=== PATIENT | female | born 1950 | race Caucasian/White ===

== ENCOUNTER → 2017-09-23 | Outpatient (CLI) | payer OTHER ==
[~2017-09-23] MED LIST: ASPI81TA28 PO; CLX20 PO; LORA-741 PO; OMEP20CA59 PO; ZCR40 PO
--- NOTE | 2017-09-24 07:56 | MAMMOGRAPHY REPORT ---
BILATERAL DIGITAL SCREENING MAMMOGRAM TOMOSYNTHESIS WITH CAD: 09/23/2017 CLINICAL HISTORY: Routine screening. Patient has no complaints. TECHNIQUE: The study was acquired using full field digital technology and interpreted from soft copy. Breast tomosynthesis in addition to standard 2D mammography was performed. Current study was also ev aluated with a Computer Aided Detection (CAD) system. COMPARISON: Comparison is made to exams dated: 04/26/2014 mammogram, 04/25/2013 mammogram, 04/19/2012 m ammogram, 04/16/2011 mammogram, 04/15/2010 mammogram, and 04/13/2009 mammogram - [facility] enter. BREAST COMPOSITION: The tissue of both breasts is almost entirely fatty. FINDINGS: There are a few scattered benign rim calcifications and a stable benign subcentimeter lobul ated mass in the right breast. No new suspicious mass, architectural distortion or cluster of microca lcifications is seen. IMPRESSION: ACR BI-RADS CATEGORY 1: NEGATIVE There is no mammographic evidence of malignancy. A 1 year screening mammogram is recommended.( 019) The patient will receive written notification of the results. Some breast cancers are not detected with mammography. A negative mammographic report should not flora y biopsy if a clinically suggestive mass is present. Giselle Alexander M.D. ay/:09/23/2017 14:00:45 Shutdown Coordinator: RT Veronique(Miguelangel)(M)(BD), [facility] letter sent: Normal 1/2 BI-RADS Code: ACR BI-RADS Category 1: Negative
== END | disposition home or self-care (01) ==
LOC: C.MAMM 12:15
PROVIDERS: ATTEND Student in an Organized Health Care Education/Training Program
DX: Z12.31 Encounter for screening mammogram for malignant neoplasm of breast (principal)

== ENCOUNTER 2022-03-09 15:14 | Inpatient (IN) ==
[2022-03-09] MEDS ORDERED: SODIUM CHLORIDE 0.9% 1000ML 1,000 ML IV ONE ×2 (16:02→17:41)
[2022-03-09] MEDS ORDERED: ONDANSETRON INJ 2 MG/ML 2 ML VIAL IV STA (16:02)
--- NOTE | 2022-03-09 16:06 | Emergency Department Note ---
Impression & Plan Pulmonary embolism and infarction, Chest pain, Acute deep vein thrombosis (DVT) of right lower extremity ED Provider Note NAME: VALENTE LUKE AGE: 71 SEX: F : 1950 ARRIVES VIA: Walk-In INFORMANT: Patient, significant other ED PROVIDER(S): Toni Moore DO CHIEF COMPLAINT: Leg pain HPI: The patient is a 71-year-old female who presented to the emergency department for an evaluation of leg pain. The patient has been experiencing right lower extremity swelling and pain over the course the last 6 to 7 days. She states she is also started having pain in her left chest. She describes it on her left flank and left side. She states she has some shortness of breath nausea and does not any eat or drink. She was seen at the outpatient clinic today and was sent to the emergency department for concerns of venous thromboembolic disease. She has no history of venous thromboembolic disease. She states her pain is mild at this time. She denies having any fever. She has had a slight cough. She notices decreased taste. The patient states that she has been compliant with her outpatient medications otherwise. The patient states the discomfort started behind her right leg. ROS: See above HPI for pertinent positives & negatives. A total of 10 systems reviewed and were otherwise negative. PAST MEDICAL HISTORY: See Below PAST SURGICAL HISTORY: See Below FAMILY HISTORY: See Below SOCIAL HISTORY: See Below HOME MEDICATIONS: See Below ALLERGIES: See Below VITALS: See Below PHYSICAL EXAMINATION: GENERAL: Patient is awake alert in no acute distress patient is resting comfortably and showing no signs of anxiety EYES: The conjunctivae are clear. The pupils are round and reactive. EARS, NOSE, MOUTH AND THROAT: The nose is without any evidence of any deformity. NECK: The neck is nontender and supple. RESPIRATORY: Normal respiratory effort is noted there is no evidence of wheezing rhonchi or rales CARDIOVASCULAR: Regular rate and rhythm noted there no murmurs rubs or gallops normal S1 normal S2. GASTROINTESTINAL: The abdomen is soft. Abdomen is nontender. MUSCULOSKELETAL/EXTREMITIES: There is no evidence of gross deformity full range of motion is noted in the hips and shoulders. SKIN: The skin is warm and dry. Pedal edema was noted in the right lower extremity. There was right calf tenderness. NEUROLOGIC: Patient is awake alert and oriented x3 MEDICAL DECISION MAKING: The patient is a 71-year-old female who presented to the emergency department for an evaluation of chest pain. The patient describes pleuritic left-sided chest pain. She also has right lower extremity swelling. She was seen at the outpatient clinic for lower extremity swelling. She was sent to the emergency department for a possible DVT. The patient was treated with IV fluids and IV pain medication in the emergency department. She was also treated with IV heparin. I discussed the patient's condition with her. She was found to have bilateral pulmonary embolism with right heart strain. I discussed her condition with the on-call [facility]. They have agreed to evaluate the patient in the emergency department for further management and disposition. The patient was feeling much better on subsequent reevaluation. Triage Nursing notes reviewed. Prior medical records reviewed Vital Signs: reviewed and remarkable for tachycardia. Differential diagnosis: DVT, musculoskeletal, infection, joint effusion, trauma, lymphedema, idiopathic, CHF, as well as other pathologies. ER treatment provided: See below Diagnostics interpreted by me: ECG: EKG was obtained in the emergency department. My interpretation is sinus tachycardia 102 bpm. Apical and low lateral ST depressions were noted. This was compared to a tracing from April 04, 2015. No changes were noted. Cardiac Monitoring: An order was placed for continuous cardiac monitoring. The monitor shows a rate of 104 bpm with sinus tachycardia. Laboratory studies: As stated above and show below. Imaging studies: See below. I did independently review the patient's radiographic studies Consultation(s): I discussed this case with Dr. Benedict who is on-call for the [facility]ist group. ED COURSE: Procedures: none Critical Care: I have personally spent greater than 55 minutes of critical care time in the direct management of this patient. This includes bedside care, interpretation of diagnostic studies, and testing, discussion with consultants, patient, and family members, and other required patient management activities. This 55 minutes is in excess of all separately billable procedures. Past Med/Surg History Medical History Anxiety Arthritis Back pain (09/09/13) Back strain Depression Lumbar foraminal stenosis (09/06/13) Surgical History History of back surgery History of hysterectomy History of tonsillectomy History of tubal ligation Social History Smoking Status: Former smoker Preferred Language: Slovak Feels Safe at Home: Yes Allergies Allergies Allergy/AdvReac Type Severity Reaction Status Date / Time Pertussis Vaccines Allergy Unknown RASH/SWELLING Verified 04/04/15 21:59 AT INJECTION SITE Home Meds Home Medications Medication Instructions Recorded Confirmed duloxetine 30 mg capsule,delayed 30 mg PO DAILY 03/09/22 03/09/22 release (Cymbalta) lorazepam 1 mg tablet 1 mg PO HS 03/09/22 03/09/22 omeprazole 20 mg capsule,delayed 20 mg PO DAILY 03/09/22 03/09/22 release oxybutynin chloride 5 mg 5 mg PO DAILY 03/09/22 03/09/22 tablet,extended release 24 hr simvastatin 40 mg tablet 40 mg PO DAILY 03/09/22 03/09/22 Results & Data (ED) Vital Signs Vital Signs - 24 hr 03/09/22 15:19 03/09/22 16:26 03/09/22 19:00 Temperature 36.5 C Temperature Source Temporal Artery Scan Pulse Rate 114 H Pulse Rate [Finger] 104 H 105 H Respiratory Rate 16 24 20 Respiratory Effort / Characteristics Non-Labored Spontaneous Respiratory Depth Normal Blood Pressure 116/79 Blood Pressure [Left Arm] 123/78 106/64 Blood Pressure Mean 91 Blood Pressure Mean [Left Arm] 93 78 Pulse Oximetry 96 94 93 Oxygen Delivery Method Room Air Room Air Room Air Sepsis Recent Fever Within 48 Hours No Sepsis New/Unexplained Change in Mental Status N/A Sepsis Action Taken by Nursing No Action Required Home Medications Current Medication List: was personally reviewed by me Laboratory Data Attestation: I reviewed the patient's lab results. 03/09/22 16:11 03/09/22 16:11 Lab Results 03/09/22 03/09/22 03/09/22 Range/Units 16:11 16:11 16:11 WBC 12.06 H (4.8-10.8) K/ul RBC 5.12 (3.93-5.22) M/uL Hgb 10.8 L (12.0-16.0) g/dl Hct 33.0 L (34.1-44.9) % MCV 64.5 L (80.0-100.0) fL MCH 21.1 L (25.0-34.0) pg MCHC 32.7 (32.0-36.0) g/dL RDW Std Deviation 38.3 (36.4-46.3) fL RDW Coeff of Carole 16.9 H (11.5-14.5) % Plt Count 247 (130-400) K/uL MPV 10.6 (9.4-12.3) fL Immature Gran % (Auto) 0.7 % Neut % (Auto) 74.4 % Lymph % (Auto) 14.9 % Hidalgo % (Auto) 9.0 % Eos % (Auto) 0.7 % Baso % (Auto) 0.3 % Neut # (Auto) 8.96 H (1.4-6.5) K/uL Lymph # (Auto) 1.80 (1.2-3.4) K/uL Hidalgo # (Auto) 1.09 H (0.24-0.82) K/uL Eos # (Auto) 0.08 (0-0.50) K/uL Baso # (Auto) 0.04 (0-0.2) K/uL Immature Gran # (Auto) 0.09 H (0.00-0.02) K/uL Microcytosis Present Ovalocytes 1+ Acanthocytes (Spur) 1+ PT 11.9 (9.0-12.0) Seconds INR 1.1 (0.9-1.1) APTT 23.8 (21.0-31.0) Seconds PTT Ratio 0.9 Sodium 132 L (136-145) mmol/L Potassium 4.2 (3.5-5.1) mmol/L Chloride 101 (98-107) mmol/L Carbon Dioxide 23 (21-32) mmol/L Anion Gap 8 (3-11) BUN 24 H (6-23) mg/dl Creatinine 1.07 (0.6-1.2) mg/dl Est Cr Clr Drug Dosing Not Reportable Est GFR ( Amer) 60.5 ml/min Est GFR (Non-Af Amer) 52.2 ml/min BUN/Creatinine Ratio 22.4 H (10-20) Glucose 115 H (70-99(Fasting)) mg/dl Calcium 9.0 (8.5-10.1) mg/dl Total Bilirubin 0.6 (0.2-1.0) mg/dl AST 31 (13-39) U/L ALT 38 (7-52) U/L Alkaline Phosphatase 138 H (34-104) U/L Troponin I High Sens 20.6 H (0-14) pg/ml Total Protein 7.4 (6.0-8.3) gm/dl Albumin 3.6 (3.4-5.0) gm/dl Globulin 3.8 (2.5-4.0) gm/dl Albumin/Globulin Ratio 0.9 (0.9-2) SARS-CoV-2 (PCR) (Negative) Influenza Type A (PCR) (Neg) Influenza Type B (PCR) (Neg) RSV (RT-PCR) (Neg) 03/09/22 03/09/22 Range/Units 16:11 16:11 WBC (4.8-10.8) K/ul RBC (3.93-5.22) M/uL Hgb (12.0-16.0) g/dl Hct (34.1-44.9) % MCV (80.0-100.0) fL MCH (25.0-34.0) pg MCHC (32.0-36.0) g/dL RDW Std Deviation (36.4-46.3) fL RDW Coeff of Carole (11.5-14.5) % Plt Count (130-400) K/uL MPV (9.4-12.3) fL Immature Gran % (Auto) % Neut % (Auto) % Lymph % (Auto) % Hidalgo % (Auto) % Eos % (Auto) % Baso % (Auto) % Neut # (Auto) (1.4-6.5) K/uL Lymph # (Auto) (1.2-3.4) K/uL Hidalgo # (Auto) (0.24-0.82) K/uL Eos # (Auto) (0-0.50) K/uL Baso # (Auto) (0-0.2) K/uL Immature Gran # (Auto) (0.00-0.02) K/uL Microcytosis Ovalocytes Acanthocytes (Spur) PT (9.0-12.0) Seconds INR (0.9-1.1) APTT (21.0-31.0) Seconds PTT Ratio Sodium (136-145) mmol/L Potassium (3.5-5.1) mmol/L Chloride (98-107) mmol/L Carbon Dioxide (21-32) mmol/L Anion Gap (3-11) BUN (6-23) mg/dl Creatinine (0.6-1.2) mg/dl Est Cr Clr Drug Dosing Est GFR ( Amer) ml/min Est GFR (Non-Af Amer) ml/min BUN/Creatinine Ratio (10-20) Glucose (70-99(Fasting)) mg/dl Calcium (8.5-10.1) mg/dl Total Bilirubin (0.2-1.0) mg/dl AST (13-39) U/L ALT (7-52) U/L Alkaline Phosphatase (34-104) U/L Troponin I High Sens Cancelled (0-14) pg/ml Total Protein (6.0-8.3) gm/dl Albumin (3.4-5.0) gm/dl Globulin (2.5-4.0) gm/dl Albumin/Globulin Ratio (0.9-2) SARS-CoV-2 (PCR) NEGATIVE (Negative) Influenza Type A (PCR) Negative (Neg) Influenza Type B (PCR) Negative (Neg) RSV (RT-PCR) Negative (Neg) Administered Medications Enoxaparin Sodium (Enoxaparin 80 Mg/0.8 Ml Syr) 80 mg SQ Q12 SANDI Stop: 03/09/22 21:01 Last Admin: 03/09/22 19:24 Dose: 80 mg Documented By: GIBRAN Miscellaneous (Patient's Height &/Or Weight Needed) 1 each N/A Q2H [facility] Stop: 04/08/22 18:29 Last Admin: 03/09/22 19:26 Dose: 1 each Documented By: GIBRAN Discontinued Medications Heparin Sodium (Porcine) (Heparin Sod (Porcine) 1000 Unit/Ml) 1 units IV NOW ONE Stop: 03/09/22 17:57 Last Admin: 03/09/22 19:27 Dose: Not Given Documented By: GIBRAN Heparin Sodium/Dextrose (Heparin Iv Adult Wt-Based Standard With Bolus Protocol) 1 each IV NOW STA; Protocol Stop: 03/09/22 17:42 Last Admin: 03/09/22 19:27 Dose: Not Given Documented By: GIBRAN Sodium Chloride (Nss 1000ml) 1,000 mls @ 999 mls/hr IV .Q1H1M ONE Stop: 03/09/22 17:02 Last Infusion: 03/09/22 17:07 Dose: 0 mls/hr Documented By: Admin: 03/09/22 16:12 Dose: 999 mls/hr Documented By: DANIEL Heparin Sodium/Dextrose (Heparin Sodium/Dextrose) 25,000 units in 500 mls @ 0.02 mls/hr IV .Q24H SANDI; Protocol Stop: 04/08/22 17:59 Last Admin: 03/09/22 19:27 Dose: Not Given Documented By: GIBRAN Sodium Chloride (Nss 1000ml) 1,000 mls @ 999 mls/hr IV .Q1H1M ONE Stop: 03/09/22 18:41 Last Admin: 03/09/22 19:23 Dose: 999 mls/hr Documented By: GIBRAN Ioversol (Optiray 320 500ml) 108 ml IV ONCE ONE Stop: 03/09/22 17:40 Last Admin: 03/09/22 17:40 Dose: 108 ml Documented By: LINNETTE Morphine Sulfate (Morphine Sulfate 4 Mg/Ml 1 Ml Carp\Vial) 4 mg IV NOW STA Stop: 03/09/22 16:22 Last Admin: 03/09/22 16:24 Dose: 4 mg Documented By: DANIEL Ondansetron HCl (Ondansetron Inj 2 Mg/Ml 2 Ml Vial) 4 mg IV NOW STA Stop: 03/09/22 16:03 Last Admin: 03/09/22 16:14 Dose: 4 mg Documented By: DANIEL Imaging Data Radiologist's Impression: Venous Doppler Study 03/09/22 15:22 RIGHT LOWER EXTREMITY VENOUS DOPPLER HISTORY: Pulmonary embolus. Right leg swelling. r/o DVT COMPARISON STUDY: None. FINDINGS: Nonocclusive thrombus within the right common femoral vein. There is occlusive thrombus seen within the right superficial femoral and right popliteal veins. The majority of the right calf veins are also thrombosed. IMPRESSION: Extensive DVT within the right lower extremity. ACT 112: Negative or not required by law. Electronically signed by: Royce Harmon M.D. 03/09/2022 7:26 PM Chest CTA 03/09/22 16:21 CHEST CTA for PULMONARY ARTERIES CT DOSE: 429.87 mGy.cm HISTORY: Shortness of breath. TECHNIQUE: Multiaxial CT images of the chest were performed following the intravenous administration of contrast to evaluate the pulmonary arteries. Maximal intensity projection images were also obtained. A dose lowering technique was utilized adhering to the principles of ALARA. COMPARISON STUDY: None. FINDINGS: There is a multinodular left thyroid goiter. This demonstrates mild left substernal extension. No mediastinal or hilar lymphadenopathy. There is a small to moderate hiatus hernia. The visualized liver, spleen, and adrenal glands are unremarkable. Normal caliber esophagus. The heart is normal in size. No pericardial effusion. Normal caliber thoracic aorta with no evidence for dissection. Slight flattening of the interventricular septum which could represent mild right-sided heart strain. Multiple bilateral pulmonary emboli, right greater than left. This involves the majority of the lobar and segmental pulmonary arteries. Thrombus is also seen within the distal right main pulmonary artery. No acute fractures identified. No pneumothorax. The central airways are patent. Mild emphysema. Groundglass and consolidative airspace opacities within the base of the left lower lobe favor a pulmonary infarct. Ground glass densities within the right lower lobe posteriorly favor dependent changes. IMPRESSION: 1. Extensive bilateral pulmonary emboli with borderline right-sided heart strain and a left lower lobe pulmonary infarct. 2. Small left pleural effusion. 3. Small to moderate hiatus hernia. 4. Mild emphysema. ACT 112: Negative or not required by law. Electronically signed by: Royce Harmon M.D. 03/09/2022 6:15 PM Discharge Plan Visit Data Chief Complaint: Leg Injury/Pain Stated Complaint: POSSIBLE BLOOD CLOT, RIGHT LEG PAIN - MD REFERRED ED Provider: Toni Moore Discharge Problem: Pulmonary embolism and infarction, Chest pain, Acute deep vein thrombosis (DVT) of right lower extremity Patient Disposition: Being Evaluated by Hospitalist Forms Stand Alone Forms: My [facility] [employer] Prescriptions Prescriptions: No Action simvastatin 40 mg tablet 40 mg PO DAILY oxybutynin chloride 5 mg tablet extended release 24hr 5 mg PO DAILY omeprazole 20 mg capsule,delayed release(DR/EC) 20 mg PO DAILY lorazepam 1 mg tablet 1 mg PO HS duloxetine [Cymbalta] 30 mg capsule,delayed release(DR/EC) 30 mg PO DAILY Referrals Referrals: Debbi Lewis MD [Outside Practitioners] -
[2022-03-09] MEDS ORDERED: MoRPHine SULFATE 4 MG/ML 1 ML CARP\\VIAL IV STA (16:21)
[2022-03-09 16:30] LABS: Basophils # (auto) 0.04 K/uL (0-0.2); Basophils % (auto) 0.3 %; Eosinophils # (auto) 0.08 K/uL (0-0.50); Eosinophils % (auto) 0.7 %; Hemoglobin 10.8 g/dl (12.0-16.0); Immature Granulocytes # (auto) 0.09 K/uL (0.00-0.02); Immature Granulocytes % (auto) 0.7 %; Lymphocytes % (auto) 14.9 %; Mean Corpuscular Hemoglobin 21.1 pg (25.0-34.0); Mean Corpuscular Hgb Conc 32.7 g/dL (32.0-36.0); Mean Corpuscular Volume 64.5 fL (80.0-100.0); Monocytes # (auto) 1.09 K/uL (0.24-0.82); Neutrophils # (auto) 8.96 K/uL (1.4-6.5); Neutrophils % (auto) 74.4 %; RDW Coefficient of Variation 16.9 % (11.5-14.5); RDW Standard Deviation 38.3 fL (36.4-46.3); Red Blood Count 5.12 M/uL (3.93-5.22); White Blood Count 12.06 K/ul (4.8-10.8)
[2022-03-09 16:43] LABS: INR 1.1 (0.9-1.1); Partial Thromboplastin Ratio 0.9; Partial Thromboplastin Time 23.8 Seconds (21.0-31.0); Prothrombin Time 11.9 Seconds (9.0-12.0)
[2022-03-09 16:57] LABS: Acanthocytes 1+; Mean Platelet Volume 10.6 fL (9.4-12.3); Microcytosis Present; Ovalocytes 1+; Platelet Count 247 K/uL (130-400)
[2022-03-09 16:59] LABS: Alanine Aminotransferase 38 U/L (7-52); Albumin Globulin Ratio 0.9 (0.9-2); Albumin Level 3.6 gm/dl (3.4-5.0); Alkaline Phosphatase 138 U/L (34-104); Anion Gap 8 (3-11); Aspartate Aminotransferase 31 U/L (13-39); BUN Creatinine Ratio 22.4 (10-20); Bilirubin,Total 0.6 mg/dl (0.2-1.0); Blood Urea Nitrogen 24 mg/dl (6-23); Carbon Dioxide 23 mmol/L (21-32); Chloride 101 mmol/L (98-107); Est GFR (African American) 60.5 ml/min; Est GFR (Non-African American) 52.2 ml/min; Globulin 3.8 gm/dl (2.5-4.0); Glucose 115 mg/dl (70-99(Fasting)); Potassium 4.2 mmol/L (3.5-5.1); Sodium 132 mmol/L (136-145); Total Protein 7.4 gm/dl (6.0-8.3); Troponin I High Sensitivity 20.6 pg/ml (0-14)
[2022-03-09 17:10] LABS: Influenza A virus by PCR Negative (Neg); Influenza B virus by PCR Negative (Neg); RSV by PCR Negative (Neg); SARS CoV2 RNA(COVID-19) Ceph NEGATIVE (Negative)
[2022-03-09] MEDS ORDERED: OPTIRAY 320 500ml IV ONE (17:39)
[2022-03-09] MEDS ORDERED: Heparin IV Adult Wt-Based Standard WITH Bolus Protocol IV STA (17:41)
[2022-03-09] MEDS ORDERED: HEPARIN SOD (PORCINE) 1000 UNIT/ML IV ONE (17:56)
[2022-03-09] MEDS ORDERED: HEPARIN SODIUM/DEXTROSE 25,000 UNITS/500 ML BAG IV SCH (18:00)
--- NOTE | 2022-03-09 18:17 | CT Scan Report ---
CHEST CTA for PULMONARY ARTERIES CT DOSE: 429.87 mGy.cm HISTORY: Shortness of breath. TECHNIQUE: Multiaxial CT images of the chest were performed following the intravenous administration of contrast to evaluate the pulmonary arteries. Maximal intensity projection images were also obtaine d. A dose lowering technique was utilized adhering to the principles of ALARA. COMPARISON STUDY: None. FINDINGS: There is a multinodular left thyroid goiter. This demonstrates mild left substernal extensi on. No mediastinal or hilar lymphadenopathy. There is a small to moderate hiatus hernia. The visualiz ed liver, spleen, and adrenal glands are unremarkable. Normal caliber esophagus. The heart is normal in size. No pericardial effusion. Normal caliber thoracic aorta with no evidence for dissection. Slig ht flattening of the interventricular septum which could represent mild right-sided heart strain. Mul tiple bilateral pulmonary emboli, right greater than left. This involves the majority of the lobar an d segmental pulmonary arteries. Thrombus is also seen within the distal right main pulmonary artery. No acute fractures identified. No pneumothorax. The central airways are patent. Mild emphysema. Groun dglass and consolidative airspace opacities within the base of the left lower lobe favor a pulmonary infarct. Ground glass densities within the right lower lobe posteriorly favor dependent changes. IMPRESSION: 1. Extensive bilateral pulmonary emboli with borderline right-sided heart strain and a left lower lob e pulmonary infarct. 2. Small left pleural effusion. 3. Small to moderate hiatus hernia. 4. Mild emphysema. ACT 112: Negative or not required by law. Electronically signed by: Royce Harmon M.D. 03/09/2022 6:15 PM
--- NOTE | 2022-03-09 18:58 | History & Physical Report ---
Date of Service March 09, 2022 Assessment & Plan (1) Pulmonary embolism and infarction: Plan: Submassive PE Right ventricular strain Patient presents with 1 week history of right leg swelling and left-sided chest pain. Hemodynamically stable. In room air EKG shows sinus tachycardia; no ST or T wave changes. High-sensitivity troponin elevated to 20. CTA chest shows bilateral extensive PEAnd left lower lobe pulmonary infarct. Plan; Start therapeutic Lovenox with 1 mg/kg every 12 hour. We will obtain echocardiogram to assess for right ventricular strain. Trend troponin and obtain BNP. monitor on telemetry; monitor closely for decompensation. US venous duplex pending. Patient will need outpatient colonoscopy for cancer screening given unprovoked PE. Microcytic anemia Hemoglobin of 10.8; microcytic. Denies melena. History of early menopause. Obtain iron studies. Plan Other conditions; Anxietycontinue duloxetine. GERDcontinue omeprazole Hyperlipidemiacontinue simvastatin. Full code DVT Lovenox Discussed with at bedside. History of Present Illness Chief Complaint: Right leg pain for 1 week Left-sided chest pain for 1 week. Primary Care Provider: Nereyda Palacio DO History obtained from review of medical records and patient at bedside. Past medical history of hyperlipidemia, GERD and anxiety. Patient presents with 1 week history of right leg swelling which is progressively getting worse along with pain. She reports that the pain started behind her knee just above the calf region and progressively got worse. Patient also noticed left-sided chest pain since the same duration which increases when she takes a deep breath; denies any palpitation. Endorses feeling feverish and generalized fatigue since similar duration. No complaint of dizziness, lightheadedness, abdomen pain or urinary symptoms. No history of recent travel. No history of recent surgery. Denies melena, cough or hemoptysis. She lives with her at home. She is independent of her ADLs. She has a history of smoking; stopped smoking since last Thursday. Patient reports that her last colonoscopy was 5 years ago and she is scheduled for another one in April. On presentation to the ED, patient was found to be tachycardic, afebrile and normotensive. She was saturating well in room air. Leukocytosis of 12 K was present. Hemoglobin is 10.8; microcytic. BUN/creatinine within normal limits. ALP slightly elevated at 138. High since her troponin elevated to 20.6 EKG shows sinus tachycardia. Allergies Allergy/AdvReac Type Severity Reaction Status Date / Time Pertussis Vaccines Allergy Unknown RASH/SWELLING Verified 04/04/15 21:59 AT INJECTION SITE Home Medications Medication Instructions Recorded Confirmed Type duloxetine 30 mg capsule,delayed 30 mg PO DAILY 03/09/22 03/09/22 History release (Cymbalta) lorazepam 1 mg tablet 1 mg PO HS 03/09/22 03/09/22 History omeprazole 20 mg capsule,delayed 20 mg PO DAILY 03/09/22 03/09/22 History release oxybutynin chloride 5 mg 5 mg PO DAILY 03/09/22 03/09/22 History tablet,extended release 24 hr simvastatin 40 mg tablet 40 mg PO DAILY 03/09/22 03/09/22 History Past Med/Surg History Medical History Anxiety Arthritis Back pain (09/09/13) Back strain Depression Lumbar foraminal stenosis (09/06/13) Surgical History History of back surgery History of hysterectomy History of tonsillectomy History of tubal ligation Social History Smoking Status: Former smoker Preferred Language: Pashto Feels Safe at Home: Yes Review of Systems Review of Systems: All systems reviewed & are unremarkable except as noted in Subjective Physical Exam Physical Exam: Constitutional: WD/WN, vitals as above, NAD, sitting up in bed, pleasant, conversing easily Respiratory: normal respiratory effort, lungs clear to auscultation, no wheeze, rales, rhonchi. Normal insp/exp effort, no accessory muscle use Cardiovascular: RRR, no murmur, no edema Vessels: no JVD or carotid bruit Chest: normal inspection of chest Abdomen: normal bowel sounds, soft, nontender, no hepatosplenomegaly Musculoskeletal: Swelling present on right calf extending up to thigh. Tenderness on palpation. No overlying skin changes. Skin: no rashes, warm and dry normal turgor Neurologic: PERRL, EOMI, accommodation nl, no face palsy, no dysarthria CN's II- XI intact bilaterally and moves all extremities Psychiatric: A+Ox3, euthymic affect Lymphatic: no cervical or axillary lymphadenopathy : deferred Results & Data Results & Data ([facility]) Vital Signs (Past 12 Hours) Vital Signs Temp Pulse Pulse Resp BP BP Pulse Ox 03/09/22 16:26 104 H 24 123/78 94 03/09/22 15:19 36.5 C 114 H 16 116/79 96 O2 Del Method 03/09/22 16:26 Room Air 03/09/22 15:19 Room Air
[2022-03-09] MEDS: Patient's HEIGHT &/or WEIGHT Needed SCH ×2 (19:26→22:16)
--- NOTE | 2022-03-09 19:28 | Ultrasound Report ---
RIGHT LOWER EXTREMITY VENOUS DOPPLER HISTORY: Pulmonary embolus. Right leg swelling. r/o DVT COMPARISON STUDY: None. FINDINGS: Nonocclusive thrombus within the right common femoral vein. There is occlusive thrombus see n within the right superficial femoral and right popliteal veins. The majority of the right calf vein s are also thrombosed. IMPRESSION: Extensive DVT within the right lower extremity. ACT 112: Negative or not required by law. Electronically signed by: Royce Harmon M.D. 03/09/2022 7:26 PM
[2022-03-09 19:41] LABS: Appearance Urine Clear (Clear); Bilirubin Urine Negative (Negative); Blood Urine Negative (Negative); Color Urine Yellow; Glucose Urine UA Negative (Negative); Ketones Urine Negative (Negative); Leukocyte Esterase Urine Negative (Negative); Nitrite Urine Negative (Negative); Protein Urine Negative (Negative); Specific Gravity Urine 1.015 (1.000-1.030); Urobilinogen Urine Negative (Negative); pH Urine 5.5 (4.5-7.5)
[2022-03-09] MEDS ORDERED: ENOXAPARIN 80 MG/0.8 ML SYR SQ SCH (21:00)
[2022-03-09] MEDS ORDERED: ENOXAPARIN 1 MG/KG SC SCH (21:00)
[2022-03-09] MEDS ORDERED: INFLUENZA VACCINE HIGH DOSE PF 65+ 0.7 ML SYR IM ONE (21:34)
[2022-03-09] MEDS ORDERED: MAGNESIUM HYDROXIDE SUSP 30 ML UDC PO PRN (21:40)
[2022-03-09] MEDS ORDERED: ZOLPIDEM TARTRATE 5 MG TAB PO PRN (21:40)
[2022-03-09] MEDS: ACETAMINOPHEN 325 MG TAB PO PRN (23:32)
[2022-03-10] MEDS: LORazepam 1 MG TAB PO PRN (01:57)
[2022-03-10 07:37] LABS: Basophils # (auto) 0.03 K/uL (0-0.2); Basophils % (auto) 0.4 %; Eosinophils # (auto) 0.25 K/uL (0-0.50); Hemoglobin 8.9 g/dl (12.0-16.0); Immature Granulocytes # (auto) 0.06 K/uL (0.00-0.02); Immature Granulocytes % (auto) 0.7 %; Lymphocytes # (auto) 2.14 K/uL (1.2-3.4); Mean Corpuscular Hemoglobin 20.8 pg (25.0-34.0); Mean Corpuscular Hgb Conc 31.8 g/dL (32.0-36.0); Mean Corpuscular Volume 65.6 fL (80.0-100.0); Monocytes # (auto) 1.09 K/uL (0.24-0.82); Monocytes % (auto) 13.2 %; Neutrophils # (auto) 4.66 K/uL (1.4-6.5); Neutrophils % (auto) 56.7 %; RDW Coefficient of Variation 16.8 % (11.5-14.5); RDW Standard Deviation 38.7 fL (36.4-46.3); Red Blood Count 4.27 M/uL (3.93-5.22); White Blood Count 8.23 K/ul (4.8-10.8)
[2022-03-10] MEDS: DULoxetine HCL 30 MG CAP PO SCH (07:40)
[2022-03-10] MEDS: ACETAMINOPHEN 325 MG TAB PO PRN (07:40)
[2022-03-10] MEDS: PANTOprazole 40 MG TAB PO SCH (07:40)
[2022-03-10 07:41] LABS: Mean Platelet Volume 10.5 fL (9.4-12.3); Platelet Count 238 K/uL (130-400)
[2022-03-10] MEDS: ENOXAPARIN 80 MG/0.8 ML SYR SQ SCH ×2 (07:41→19:17)
[2022-03-10] MEDS: OXYBUTYNIN CHLORIDE XL 5 MG TABCR PO SCH (07:41)
[2022-03-10] MEDS: SIMVASTATIN 40 MG TAB PO SCH (07:41)
[2022-03-10 08:24] LABS: Microcytosis Present
[2022-03-10 09:11] LABS: Alanine Aminotransferase 32 U/L (7-52); Albumin Level 2.9 gm/dl (3.4-5.0); Alkaline Phosphatase 117 U/L (34-104); Anion Gap 6 (3-11); Aspartate Aminotransferase 24 U/L (13-39); BUN Creatinine Ratio 18.4 (10-20); Bilirubin,Total 0.6 mg/dl (0.2-1.0); Blood Urea Nitrogen 18 mg/dl (6-23); Calcium 8.2 mg/dl (8.5-10.1); Carbon Dioxide 25 mmol/L (21-32); Chloride 106 mmol/L (98-107); Creatinine Clr Calc Pharmacy 50.6 ml/min; Est GFR (African American) 67.3 ml/min; Ferritin 101.6 ng/ml (8-388); Glucose 102 mg/dl (70-99(Fasting)); Iron < 10 mcg/dl (35-150); Potassium 3.9 mmol/L (3.5-5.1); Sodium 137 mmol/L (136-145); Total Protein 5.9 gm/dl (6.0-8.3); Unsaturated Iron Binding Cap 262 mcg/dl (155-355)
--- NOTE | 2022-03-10 12:38 | Hospitalist Progress Note ---
Date of Service March 10, 2022 Assessment & Plan (1) Acute deep vein thrombosis (DVT) of right lower extremity: (2) Pulmonary embolism and infarction: Plan: Submassive PE Right ventricular strain Patient presents with 1 week history of right leg swelling and left-sided chest pain. Hemodynamically stable since admission EKG shows sinus tachycardia; no ST or T wave changes. High-sensitivity troponin elevated to 20 ; down trended Right lower extremity venous Doppler shows extensive DVT within right lower extremity in right superficial femoral and right popliteal veins. CTA chest shows bilateral extensive PEAnd left lower lobe pulmonary infarct. Echocardiogram shows EF of 50 to 55%; right ventricular cavity size increased. Consistent with right ventricular strain. BNP slightly elevated. Plan; Continue on therapeutic Lovenox with 1 mg/kg every 12 hour. We will eventually changed to DOAC. Patient will likely need to be on anticoagulation indefinitely given the unprovoked nature of the DVT. Patient will need outpatient colonoscopy for cancer screening given unprovoked PE. Microcytic anemia Hemoglobin of 10.8 on admission; slightly down trended today. Iron is suggestive of AMAIRANI. Per rectal examination done; no blood seen. Fecal occult negative. Monitor for now. Outpatient colonoscopy. Plan Other conditions; Anxietycontinue duloxetine. GERDcontinue omeprazole Hyperlipidemiacontinue simvastatin. Full code DVT Lovenox Admission and Anticipated Discharge Date Admission Date: March 09, 2022 Subjective Patient seen and examined at bedside. She is comfortable; saturating well in 2 L of oxygen. Patient reports significant dyspnea on exertion. No complaint of melena. Review of Systems Review of Systems: All systems reviewed & are unremarkable except as noted in Subjective Physical Exam Physical Exam: Constitutional: WD/WN, vitals as above, NAD, sitting up in bed, pleasant, conversing easily Respiratory: normal respiratory effort, lungs clear to auscultation, no wheeze, rales, rhonchi. Normal insp/exp effort, no accessory muscle use Cardiovascular: RRR, no murmur, no edema Vessels: no JVD or carotid bruit Chest: normal inspection of chest Abdomen: normal bowel sounds, soft, nontender, no hepatosplenomegaly Musculoskeletal: Swelling present on right calf extending up to thigh. Tenderness on palpation. No overlying skin changes. Skin: no rashes, warm and dry normal turgor Neurologic: PERRL, EOMI, accommodation nl, no face palsy, no dysarthria CN's II- XI intact bilaterally and moves all extremities Psychiatric: A+Ox3, euthymic affect Lymphatic: no cervical or axillary lymphadenopathy : deferred Results & Data Results & Data ([facility]) Vital Signs (Past 12 Hours) Vital Signs Temp Pulse Resp BP Pulse Ox O2 Del Method O2 Flow Rate 03/10/22 11:46 36.7 C 95 H 20 120/75 93 Nasal Cannula 2 03/10/22 07:48 36.8 C 83 18 116/79 93 Nasal Cannula 2 03/10/22 03:04 37.0 C 85 20 98/66 L 94 Nasal Cannula 2.0 Laboratory Results Laboratory Results WBC 8.23 K/ul (4.8-10.8) 03/10/22 07:17 RBC 4.27 M/uL (3.93-5.22) 03/10/22 07:17 Hgb 8.9 g/dl (12.0-16.0) L 03/10/22 07:17 Hct 28.0 % (34.1-44.9) L 03/10/22 07:17 MCV 65.6 fL (80.0-100.0) L 03/10/22 07:17 MCH 20.8 pg (25.0-34.0) L 03/10/22 07:17 MCHC 31.8 g/dL (32.0-36.0) L 03/10/22 07:17 RDW Std Deviation 38.7 fL (36.4-46.3) 03/10/22 07:17 RDW Coeff of Carole 16.8 % (11.5-14.5) H 03/10/22 07:17 Plt Count 238 K/uL (130-400) 03/10/22 07:17 MPV 10.5 fL (9.4-12.3) 03/10/22 07:17 Immature Gran % (Auto) 0.7 % 03/10/22 07:17 Neut % (Auto) 56.7 % 03/10/22 07:17 Lymph % (Auto) 26.0 % 03/10/22 07:17 [place] % (Auto) 13.2 % 03/10/22 07:17 Eos % (Auto) 3.0 % 03/10/22 07:17 Baso % (Auto) 0.4 % 03/10/22 07:17 Neut # (Auto) 4.66 K/uL (1.4-6.5) 03/10/22 07:17 Lymph # (Auto) 2.14 K/uL (1.2-3.4) 03/10/22 07:17 [place] # (Auto) 1.09 K/uL (0.24-0.82) H 03/10/22 07:17 Eos # (Auto) 0.25 K/uL (0-0.50) 03/10/22 07:17 Baso # (Auto) 0.03 K/uL (0-0.2) 03/10/22 07:17 Immature Gran # (Auto) 0.06 K/uL (0.00-0.02) H 03/10/22 07:17 Microcytosis Present 03/10/22 07:17 Ovalocytes 1+ 03/09/22 16:11 Acanthocytes (Spur) 1+ 03/09/22 16:11 PT 11.9 Seconds (9.0-12.0) 03/09/22 16:11 INR 1.1 (0.9-1.1) 03/09/22 16:11 APTT 23.8 Seconds (21.0-31.0) 03/09/22 16:11 PTT Ratio 0.9 03/09/22 16:11 Sodium 137 mmol/L (136-145) 03/10/22 07:17 Potassium 3.9 mmol/L (3.5-5.1) 03/10/22 07:17 Chloride 106 mmol/L (98-107) 03/10/22 07:17 Carbon Dioxide 25 mmol/L (21-32) 03/10/22 07:17 Anion Gap 6 (3-11) 03/10/22 07:17 BUN 18 mg/dl (6-23) 03/10/22 07:17 Creatinine 0.98 mg/dl (0.6-1.2) 03/10/22 07:17 Est Cr Clr Drug Dosing 50.6 ml/min 03/10/22 07:17 Est GFR ( Amer) 67.3 ml/min 03/10/22 07:17 Est GFR (Non-Af Amer) 58.0 ml/min 03/10/22 07:17 BUN/Creatinine Ratio 18.4 (10-20) 03/10/22 07:17 Glucose 102 mg/dl (70-99(Fasting)) H 03/10/22 07:17 Calcium 8.2 mg/dl (8.5-10.1) L 03/10/22 07:17 Iron < 10 mcg/dl (35-150) L 03/10/22 07:17 Unsaturated IBC 262 mcg/dl (155-355) 03/10/22 07:17 Ferritin 101.6 ng/ml (8-388) 03/10/22 07:17 Total Bilirubin 0.6 mg/dl (0.2-1.0) 03/10/22 07:17 AST 24 U/L (13-39) 03/10/22 07:17 ALT 32 U/L (7-52) 03/10/22 07:17 Alkaline Phosphatase 117 U/L (34-104) H 03/10/22 07:17 Troponin I High Sens 14.3 pg/ml (0-14) H D 03/10/22 09:46 B-Natriuretic Peptide 128 pg/ml (0-100) H 03/09/22 22:48 Total Protein 5.9 gm/dl (6.0-8.3) L D 03/10/22 07:17 Albumin 2.9 gm/dl (3.4-5.0) L 03/10/22 07:17 Globulin 3.0 gm/dl (2.5-4.0) 03/10/22 07:17 Albumin/Globulin Ratio 1.0 (0.9-2) 03/10/22 07:17 Urine Color Yellow 03/09/22 19:26 Urine Appearance Clear (Clear) 03/09/22 19:26 Urine pH 5.5 (4.5-7.5) 03/09/22 19:26 Ur Specific [place] 1.015 (1.000-1.030) 03/09/22 19:26 Urine Protein Negative (Negative) 03/09/22 19:26 Urine Glucose (UA) Negative (Negative) 03/09/22 19:26 Urine Ketones Negative (Negative) 03/09/22 19:26 Urine Blood Negative (Negative) 03/09/22 19:26 Urine Nitrite Negative (Negative) 03/09/22 19:26 Urine Bilirubin Negative (Negative) 03/09/22 19:26 Urine Urobilinogen Negative (Negative) 03/09/22 19:26 Ur Leukocyte Esterase Negative (Negative) 03/09/22 19:26 Stool Occult Bld Scrn Negative (Negative) 03/10/22 Unknown SARS-CoV-2 (PCR) NEGATIVE (Negative) 03/09/22 16:11 Influenza Type A (PCR) Negative (Neg) 03/09/22 16:11 Influenza Type B (PCR) Negative (Neg) 03/09/22 16:11 RSV (RT-PCR) Negative (Neg) 03/09/22 16:11 Impressions Venous Doppler Study 03/09/22 15:22 RIGHT LOWER EXTREMITY VENOUS DOPPLER HISTORY: Pulmonary embolus. Right leg swelling. r/o DVT COMPARISON STUDY: None. FINDINGS: Nonocclusive thrombus within the right common femoral vein. There is occlusive thrombus seen within the right superficial femoral and right popliteal veins. The majority of the right calf veins are also thrombosed. IMPRESSION: Extensive DVT within the right lower extremity. ACT 112: Negative or not required by law. Electronically signed by: Royce Harmon M.D. 03/09/2022 7:26 PM Chest CTA 03/09/22 16:21 CHEST CTA for PULMONARY ARTERIES CT DOSE: 429.87 mGy.cm HISTORY: Shortness of breath. TECHNIQUE: Multiaxial CT images of the chest were performed following the intravenous administration of contrast to evaluate the pulmonary arteries. Maximal intensity projection images were also obtained. A dose lowering technique was utilized adhering to the principles of ALARA. COMPARISON STUDY: None. FINDINGS: There is a multinodular left thyroid goiter. This demonstrates mild left substernal extension. No mediastinal or hilar lymphadenopathy. There is a small to moderate hiatus hernia. The visualized liver, spleen, and adrenal glands are unremarkable. Normal caliber esophagus. The heart is normal in size. No pericardial effusion. Normal caliber thoracic aorta with no evidence for dissection. Slight flattening of the interventricular septum which could represent mild right-sided heart strain. Multiple bilateral pulmonary emboli, right greater than left. This involves the majority of the lobar and segmental pulmonary arteries. Thrombus is also seen within the distal right main pulmonary artery. No acute fractures identified. No pneumothorax. The central airways are patent. Mild emphysema. Groundglass and consolidative airspace opacities within the base of the left lower lobe favor a pulmonary infarct. Ground glass densities within the right lower lobe posteriorly favor dependent changes. IMPRESSION: 1. Extensive bilateral pulmonary emboli with borderline right-sided heart strain and a left lower lobe pulmonary infarct. 2. Small left pleural effusion. 3. Small to moderate hiatus hernia. 4. Mild emphysema. ACT 112: Negative or not required by law. Electronically signed by: Royce Harmon M.D. 03/09/2022 6:15 PM (1) Acute deep vein thrombosis (DVT) of right lower extremity Affected thrombotic vein of extremity: unspecified vein of extremity Qualified Code(s): I82.401 - Acute embolism and thrombosis of unspecified deep veins of right lower extremity
--- NOTE | 2022-03-10 14:10 | Electrocardiogram Report ---
Test Reason : Blood Pressure : / mmHG Vent. Rate : 102 BPM Atrial Rate : 102 BPM P-R Int : 126 ms QRS Dur : 068 ms QT Int : 326 ms P-R-T Axes : 043 035 038 degrees QTc Int : 424 ms Poor data quality, interpretation may be adversely affected Sinus tachycardia Otherwise normal ECG When compared with ECG of 04-APR-2015 22:29, T-wave inversion in Anterior leads no longer present Confirmed by Donte Rivera ([id number]) on 03/10/2022 2:10:26 PM Referred By: REFERRED SELF Confirmed By:Donte Rivera
--- NOTE | 2022-03-10 14:11 | Electrocardiogram Report ---
Test Reason : Blood Pressure : / mmHG Vent. Rate : 090 BPM Atrial Rate : 090 BPM P-R Int : 124 ms QRS Dur : 072 ms QT Int : 382 ms P-R-T Axes : 071 031 026 degrees QTc Int : 467 ms Normal sinus rhythm Normal ECG When compared with ECG of 09-MAR-2022 15:59, No significant change was found Confirmed by Donte Rivera ([id number]) on 03/10/2022 2:10:38 PM Referred By: REFERRED SELF Confirmed By:Donte Rivera
[2022-03-11 06:30] LABS: Basophils # (auto) 0.02 K/uL (0-0.2); Basophils % (auto) 0.2 %; Eosinophils # (auto) 0.19 K/uL (0-0.50); Hematocrit (blood only) 27.3 % (34.1-44.9); Hemoglobin 8.8 g/dl (12.0-16.0); Immature Granulocytes # (auto) 0.05 K/uL (0.00-0.02); Immature Granulocytes % (auto) 0.5 %; Lymphocytes # (auto) 2.18 K/uL (1.2-3.4); Lymphocytes % (auto) 22.9 %; Mean Corpuscular Hemoglobin 21.1 pg (25.0-34.0); Mean Corpuscular Hgb Conc 32.2 g/dL (32.0-36.0); Mean Corpuscular Volume 65.3 fL (80.0-100.0); Monocytes # (auto) 0.84 K/uL (0.24-0.82); Monocytes % (auto) 8.8 %; Neutrophils # (auto) 6.26 K/uL (1.4-6.5); Neutrophils % (auto) 65.6 %; RDW Coefficient of Variation 16.5 % (11.5-14.5); RDW Standard Deviation 38.3 fL (36.4-46.3); Red Blood Count 4.18 M/uL (3.93-5.22); White Blood Count 9.54 K/ul (4.8-10.8)
[2022-03-11 06:37] LABS: Mean Platelet Volume 10.8 fL (9.4-12.3); Platelet Count 285 K/uL (130-400)
[2022-03-11 06:52] LABS: Microcytosis Present; Ovalocytes 1+; Polychromasia 1+
[2022-03-11 06:58] LABS: Albumin Level 2.9 gm/dl (3.4-5.0); BUN Creatinine Ratio 12.9 (10-20); Bilirubin,Total 0.4 mg/dl (0.2-1.0); Calcium 8.1 mg/dl (8.5-10.1); Creatinine Clr Calc Pharmacy 57.6 ml/min; Est GFR (African American) 79.9 ml/min; Est GFR (Non-African American) 68.9 ml/min; Potassium 3.4 mmol/L (3.5-5.1); Total Protein 5.9 gm/dl (6.0-8.3)
[2022-03-11] MEDS: ENOXAPARIN 80 MG/0.8 ML SYR SQ SCH ×2 (08:56→19:34)
[2022-03-11] MEDS: PANTOprazole 40 MG TAB PO SCH (08:57)
[2022-03-11] MEDS: DULoxetine HCL 30 MG CAP PO SCH (08:57)
[2022-03-11] MEDS: OXYBUTYNIN CHLORIDE XL 5 MG TABCR PO SCH (08:57)
[2022-03-11] MEDS: SIMVASTATIN 40 MG TAB PO SCH (08:57)
--- NOTE | 2022-03-11 12:03 | Gastrointestinal Consultation ---
Date of Consultation March 11, 2022 Assessment & Plan (1) Acute deep vein thrombosis (DVT) of right lower extremity: (2) Pulmonary embolism: (3) Anemia: Patient is a 71 years old female newly diagnosed with bilateral PE and right lower extremity DVT, seen for microcytic anemia without signs and symptoms of gross GI bleeding. Her FOBT was negative. Fe level was <10. - Replete iron - Discussed case with Dr. Grace, deferring inpt workup for anemia at this time. Will try to add EGD to already scheduled outpt Colonoscopy on 04/08. May start anticoagulation and monitor for s/s of GI bleeding - Pls recall GI prn Supervising Physician Co-Signing Physician Notes I have personally seen and examined the patient with SURI Mcnair. Her note reflects my exam and findings. I agree with her impression and plan. Patient has had multiple colonoscopies and is currently up to date with colon cancer screening. Low likelihood of advanced colonic pathology. Sohail Grace M.D. History of Present Illness Reason for Consultation: Anemia, concern for GI bleed, anticipating anticoagulation use Requesting Physician: Dr. Jonny Benedict Attending Physician: Dr. Sohail Grace History of Present Illness Patient is a 71 years old female with past medical history is including hyperlipidemia, GERD and anxiety who presented with 1 week history of right lower leg swelling, also left-sided chest pain. She was found to have right lower extremity DVT and also bilateral PE. GI was consulted today as her blood count was noticed to be lower. H&H was 8/27. She is about to get anticoagulated and the primary hospitalist team would like further evaluation for possible occult GI bleeding in light of the anemia. Of note her BUN was normal and her fecal occult blood test was negative. Patient denies any abdominal pain, nausea, vomiting, unexpected weight or appetite loss. She has had screening colonoscopies in the past in 2009, 2016 with findings of adenomatous and serrated colon polyps, diverticulosis. She is scheduled for outpt colonoscopy on 04/08/2022. Allergies Allergy/AdvReac Type Severity Reaction Status Date / Time Pertussis Vaccines Allergy Unknown RASH/SWELLING Verified 04/04/15 21:59 AT INJECTION SITE Home Medications Medication Instructions Recorded Confirmed Type duloxetine 30 mg capsule,delayed 30 mg PO DAILY 03/09/22 03/09/22 History release (Cymbalta) lorazepam 1 mg tablet 1 mg PO HS 03/09/22 03/09/22 History omeprazole 20 mg capsule,delayed 20 mg PO DAILY 03/09/22 03/09/22 History release oxybutynin chloride 5 mg 5 mg PO DAILY 03/09/22 03/09/22 History tablet,extended release 24 hr simvastatin 40 mg tablet 40 mg PO DAILY 03/09/22 03/09/22 History apixaban 5 mg tablet (Eliquis) 5 mg PO BID #74 tabs 03/10/22 Rx Patient History Medical History Anxiety Arthritis Back pain (09/09/13) Back strain Depression Lumbar foraminal stenosis (09/06/13) Surgical History History of back surgery History of hysterectomy History of tonsillectomy History of tubal ligation Social History Smoking Status: Former smoker Second Hand Exposure: No; Do You Dip or Chew Tobacco: No; Tobacco Cessation Education Requested by Patient: Yes Hx Alcohol Use: No Hx Substance Use: Yes Last Used Substance: Days (ago) Preferred Language: Wallisian Communication Ability: Effective Speech Professor Required: No Beliefs That Will Affect Care: None Current Living Situation: Spouse Feels Safe at Home: Yes Safety Concerns: Feels Safe At This Time Assistive Devices: None Review of Systems Review of Systems: All systems reviewed & are unremarkable except as noted in HPI & below Physical Exam Constitutional: WD/WN, vitals as above well groomed, cooperative and comfortable Eyes: PERRL, conjunctivae normal, anicteric sclerae ENMT: external ear and nose normal, oropharynx normal Respiratory: Diminished Cardiovascular: RRR, no murmur, no edema Gastrointestinal (Abdomen): normal bowel sounds, soft, nontender, no hepatosplenomegaly Skin: no rashes, warm and dry no jaundice Psychiatric: A+Ox3, euthymic affect Lymphatic: no lymphedema Results & Data ([facility]) Vital Signs (Past 12 Hours) Vital Signs Temp Pulse Resp BP Pulse Ox O2 Del Method O2 Flow Rate 03/11/22 07:59 37.2 C 89 13 106/67 97 Nasal Cannula 2 03/11/22 02:57 37.4 C 96 H 18 99/64 L 92 Nasal Cannula (1) Acute deep vein thrombosis (DVT) of right lower extremity Affected thrombotic vein of extremity: unspecified vein of extremity Qualified Code(s): I82.401 - Acute embolism and thrombosis of unspecified deep veins of right lower extremity
--- NOTE | 2022-03-11 12:20 | Hospitalist Progress Note ---
Date of Service March 11, 2022 Assessment & Plan (1) Acute deep vein thrombosis (DVT) of right lower extremity: (2) Pulmonary embolism and infarction: Plan: Submassive PE Right ventricular strain Bilateral PEdue toRLE DVT Patient presents with 1 week history of right leg swelling and left-sided chest pain. Hemodynamically stable since admission EKG shows sinus tachycardia; no ST or T wave changes. High-sensitivity troponin elevated to 20 ; down trended Right lower extremity venous Doppler shows extensive DVT within right lower extremity in right superficial femoral and right popliteal veins. CTA chest shows bilateral extensive PEAnd left lower lobe pulmonary infarct. Echocardiogram shows EF of 50 to 55%; right ventricular cavity size increased. Consistent with right ventricular strain. BNP slightly elevated. Plan; Continue on therapeutic Lovenox with 1 mg/kg every 12 hour. Prescription sent for [employer]; cost is $55 for a month. Patient is able to afford it. Patient will likely need to be on anticoagulation indefinitely given the unprovoked nature of the DVT. Patient will need outpatient colonoscopy for cancer screening given unprovoked PE. Microcytic anemia Hemoglobin of 10.8 on admission; down trended to 8 Iron studies is suggestive of AMAIRANI. Per rectal examination done; no blood seen. Fecal occult negative. GI consulted; recommend outpatient endoscopy and colonoscopy; is scheduled for April. Plan Other conditions; Anxietycontinue duloxetine. GERDcontinue omeprazole Hyperlipidemiacontinue simvastatin. Full code DVT Lovenox DispositionPT OT evaluation is pending. We will do two-step oxygen evaluation at discharge if going home. Admission and Anticipated Discharge Date Admission Date: March 09, 2022 Subjective Patient seen and examined at bedside. She is comfortably lying in the bed; saturating well on room air. Reports that her pain in the right leg has improved. Review of Systems Review of Systems: All systems reviewed & are unremarkable except as noted in Subjective Physical Exam Physical Exam: Constitutional: WD/WN, vitals as above, NAD, sitting up in bed, pleasant, conversing easily Respiratory: normal respiratory effort, lungs clear to auscultation, no wheeze, rales, rhonchi. Normal insp/exp effort, no accessory muscle use Cardiovascular: RRR, no murmur, no edema Vessels: no JVD or carotid bruit Chest: normal inspection of chest Abdomen: normal bowel sounds, soft, nontender, no hepatosplenomegaly Musculoskeletal: Swelling present on right calf extending up to thigh. Tenderness on palpation. No overlying skin changes. Skin: no rashes, warm and dry normal turgor Neurologic: PERRL, EOMI, accommodation nl, no face palsy, no dysarthria CN's II- XI intact bilaterally and moves all extremities Psychiatric: A+Ox3, euthymic affect Lymphatic: no cervical or axillary lymphadenopathy : deferred Results & Data Results & Data ([facility]) Vital Signs (Past 12 Hours) Vital Signs Temp Pulse Resp BP Pulse Ox O2 Del Method O2 Flow Rate 03/11/22 12:13 36.9 C 89 16 103/68 94 Room Air 03/11/22 07:59 37.2 C 89 13 106/67 97 Nasal Cannula 2 03/11/22 02:57 37.4 C 96 H 18 99/64 L 92 Nasal Cannula Laboratory Results Laboratory Results WBC 9.54 K/ul (4.8-10.8) 03/11/22 05:55 RBC 4.18 M/uL (3.93-5.22) 03/11/22 05:55 Hgb 8.8 g/dl (12.0-16.0) L 03/11/22 05:55 Hct 27.3 % (34.1-44.9) L 03/11/22 05:55 MCV 65.3 fL (80.0-100.0) L 03/11/22 05:55 MCH 21.1 pg (25.0-34.0) L 03/11/22 05:55 MCHC 32.2 g/dL (32.0-36.0) 03/11/22 05:55 RDW Std Deviation 38.3 fL (36.4-46.3) 03/11/22 05:55 RDW Coeff of Carole 16.5 % (11.5-14.5) H 03/11/22 05:55 Plt Count 285 K/uL (130-400) 03/11/22 05:55 MPV 10.8 fL (9.4-12.3) 03/11/22 05:55 Immature Gran % (Auto) 0.5 % 03/11/22 05:55 Neut % (Auto) 65.6 % 03/11/22 05:55 Lymph % (Auto) 22.9 % 03/11/22 05:55 [place] % (Auto) 8.8 % 03/11/22 05:55 Eos % (Auto) 2.0 % 03/11/22 05:55 Baso % (Auto) 0.2 % 03/11/22 05:55 Neut # (Auto) 6.26 K/uL (1.4-6.5) 03/11/22 05:55 Lymph # (Auto) 2.18 K/uL (1.2-3.4) 03/11/22 05:55 [place] # (Auto) 0.84 K/uL (0.24-0.82) H 03/11/22 05:55 Eos # (Auto) 0.19 K/uL (0-0.50) 03/11/22 05:55 Baso # (Auto) 0.02 K/uL (0-0.2) 03/11/22 05:55 Immature Gran # (Auto) 0.05 K/uL (0.00-0.02) H 03/11/22 05:55 Polychromasia 1+ 03/11/22 05:55 Microcytosis Present 03/11/22 05:55 Ovalocytes 1+ 03/11/22 05:55 Acanthocytes (Spur) 1+ 03/09/22 16:11 PT 11.9 Seconds (9.0-12.0) 03/09/22 16:11 INR 1.1 (0.9-1.1) 03/09/22 16:11 APTT 23.8 Seconds (21.0-31.0) 03/09/22 16:11 PTT Ratio 0.9 03/09/22 16:11 Sodium 136 mmol/L (136-145) 03/11/22 05:55 Potassium 3.4 mmol/L (3.5-5.1) L 03/11/22 05:55 Chloride 105 mmol/L (98-107) 03/11/22 05:55 Carbon Dioxide 24 mmol/L (21-32) 03/11/22 05:55 Anion Gap 7 (3-11) 03/11/22 05:55 BUN 11 mg/dl (6-23) 03/11/22 05:55 Creatinine 0.85 mg/dl (0.6-1.2) 03/11/22 05:55 Est Cr Clr Drug Dosing 57.6 ml/min 03/11/22 05:55 Est GFR ( Amer) 79.9 ml/min 03/11/22 05:55 Est GFR (Non-Af Amer) 68.9 ml/min 03/11/22 05:55 BUN/Creatinine Ratio 12.9 (10-20) 03/11/22 05:55 Glucose 102 mg/dl (70-99(Fasting)) H 03/11/22 05:55 Calcium 8.1 mg/dl (8.5-10.1) L 03/11/22 05:55 Iron < 10 mcg/dl (35-150) L 03/10/22 07:17 Unsaturated IBC 262 mcg/dl (155-355) 03/10/22 07:17 Ferritin 101.6 ng/ml (8-388) 03/10/22 07:17 Total Bilirubin 0.4 mg/dl (0.2-1.0) 03/11/22 05:55 AST 25 U/L (13-39) 03/11/22 05:55 ALT 36 U/L (7-52) 03/11/22 05:55 Alkaline Phosphatase 130 U/L (34-104) H 03/11/22 05:55 Troponin I High Sens 14.3 pg/ml (0-14) H D 03/10/22 09:46 B-Natriuretic Peptide 128 pg/ml (0-100) H 03/09/22 22:48 Total Protein 5.9 gm/dl (6.0-8.3) L 03/11/22 05:55 Albumin 2.9 gm/dl (3.4-5.0) L 03/11/22 05:55 Globulin 3.0 gm/dl (2.5-4.0) 03/11/22 05:55 Albumin/Globulin Ratio 1.0 (0.9-2) 03/11/22 05:55 Urine Color Yellow 03/09/22 19:26 Urine Appearance Clear (Clear) 03/09/22 19:26 Urine pH 5.5 (4.5-7.5) 03/09/22 19:26 Ur Specific [place] 1.015 (1.000-1.030) 03/09/22 19:26 Urine Protein Negative (Negative) 03/09/22 19:26 Urine Glucose (UA) Negative (Negative) 03/09/22 19:26 Urine Ketones Negative (Negative) 03/09/22 19:26 Urine Blood Negative (Negative) 03/09/22 19:26 Urine Nitrite Negative (Negative) 03/09/22 19:26 Urine Bilirubin Negative (Negative) 03/09/22 19:26 Urine Urobilinogen Negative (Negative) 03/09/22 19:26 Ur Leukocyte Esterase Negative (Negative) 03/09/22 19:26 Stool Occult Bld Scrn Negative (Negative) 03/10/22 Unknown SARS-CoV-2 (PCR) NEGATIVE (Negative) 03/09/22 16:11 Influenza Type A (PCR) Negative (Neg) 03/09/22 16:11 Influenza Type B (PCR) Negative (Neg) 03/09/22 16:11 RSV (RT-PCR) Negative (Neg) 03/09/22 16:11 Impressions Venous Doppler Study 03/09/22 15:22 RIGHT LOWER EXTREMITY VENOUS DOPPLER HISTORY: Pulmonary embolus. Right leg swelling. r/o DVT COMPARISON STUDY: None. FINDINGS: Nonocclusive thrombus within the right common femoral vein. There is occlusive thrombus seen within the right superficial femoral and right popliteal veins. The majority of the right calf veins are also thrombosed. IMPRESSION: Extensive DVT within the right lower extremity. ACT 112: Negative or not required by law. Electronically signed by: Royce Harmon M.D. 03/09/2022 7:26 PM Chest CTA 03/09/22 16:21 CHEST CTA for PULMONARY ARTERIES CT DOSE: 429.87 mGy.cm HISTORY: Shortness of breath. TECHNIQUE: Multiaxial CT images of the chest were performed following the intravenous administration of contrast to evaluate the pulmonary arteries. Maximal intensity projection images were also obtained. A dose lowering technique was utilized adhering to the principles of ALARA. COMPARISON STUDY: None. FINDINGS: There is a multinodular left thyroid goiter. This demonstrates mild left substernal extension. No mediastinal or hilar lymphadenopathy. There is a small to moderate hiatus hernia. The visualized liver, spleen, and adrenal glands are unremarkable. Normal caliber esophagus. The heart is normal in size. No pericardial effusion. Normal caliber thoracic aorta with no evidence for dissection. Slight flattening of the interventricular septum which could represent mild right-sided heart strain. Multiple bilateral pulmonary emboli, right greater than left. This involves the majority of the lobar and segmental pulmonary arteries. Thrombus is also seen within the distal right main pulmonary artery. No acute fractures identified. No pneumothorax. The central airways are patent. Mild emphysema. Groundglass and consolidative airspace opacities within the base of the left lower lobe favor a pulmonary infarct. Ground glass densities within the right lower lobe posteriorly favor dependent changes. IMPRESSION: 1. Extensive bilateral pulmonary emboli with borderline right-sided heart strain and a left lower lobe pulmonary infarct. 2. Small left pleural effusion. 3. Small to moderate hiatus hernia. 4. Mild emphysema. ACT 112: Negative or not required by law. Electronically signed by: Royce Harmon M.D. 03/09/2022 6:15 PM (1) Acute deep vein thrombosis (DVT) of right lower extremity Affected thrombotic vein of extremity: unspecified vein of extremity Qualified Code(s): I82.401 - Acute embolism and thrombosis of unspecified deep veins of right lower extremity
[2022-03-11] MEDS ORDERED: POTASSIUM CHLORIDE CRTAB 20 MEQ TABCR PO STA (16:06)
[2022-03-12 06:39] LABS: Basophils # (auto) 0.02 K/uL (0-0.2); Basophils % (auto) 0.2 %; Eosinophils # (auto) 0.23 K/uL (0-0.50); Eosinophils % (auto) 2.4 %; Hematocrit (blood only) 28.9 % (34.1-44.9); Hemoglobin 9.1 g/dl (12.0-16.0); Immature Granulocytes # (auto) 0.06 K/uL (0.00-0.02); Immature Granulocytes % (auto) 0.6 %; Lymphocytes # (auto) 2.36 K/uL (1.2-3.4); Mean Corpuscular Hemoglobin 20.6 pg (25.0-34.0); Mean Corpuscular Hgb Conc 31.5 g/dL (32.0-36.0); Mean Corpuscular Volume 65.5 fL (80.0-100.0); Monocytes # (auto) 0.73 K/uL (0.24-0.82); Monocytes % (auto) 7.7 %; Neutrophils # (auto) 6.03 K/uL (1.4-6.5); Neutrophils % (auto) 64.1 %; Nucleated RBC # (auto) 0.02 K/uL (0-0); Nucleated RBC % (auto) 0.2 %; RDW Coefficient of Variation 16.5 % (11.5-14.5); RDW Standard Deviation 38.2 fL (36.4-46.3); Red Blood Count 4.41 M/uL (3.93-5.22); White Blood Count 9.43 K/ul (4.8-10.8)
[2022-03-12 07:01] LABS: BUN Creatinine Ratio 11.5 (10-20); Calcium 8.4 mg/dl (8.5-10.1); Creatinine Clr Calc Pharmacy 55.9 ml/min; Est GFR (African American) 77.7 ml/min
[2022-03-12 07:12] LABS: Mean Platelet Volume 10.8 fL (9.4-12.3); Platelet Count 335 K/uL (130-400)
[2022-03-12 07:46] LABS: Microcytosis Present; Rouleaux 1+
[2022-03-12] MEDS: ENOXAPARIN 80 MG/0.8 ML SYR SQ SCH ×2 (08:57→19:33)
[2022-03-12] MEDS: PANTOprazole 40 MG TAB PO SCH (08:58)
[2022-03-12] MEDS: OXYBUTYNIN CHLORIDE XL 5 MG TABCR PO SCH (08:58)
[2022-03-12] MEDS: SIMVASTATIN 40 MG TAB PO SCH (08:58)
[2022-03-12] MEDS: DULoxetine HCL 30 MG CAP PO SCH (08:58)
[2022-03-12] MEDS: FERROUS SULFATE 325 MG TAB PO SCH (12:06)
--- NOTE | 2022-03-12 14:32 | Hospitalist Progress Note ---
Date of Service March 12, 2022 Assessment & Plan (1) Acute deep vein thrombosis (DVT) of right lower extremity: (2) Pulmonary embolism and infarction: Plan: Submassive PE Right ventricular strain Bilateral PEdue toRLE DVT --CTA:Extensive bilateral pulmonary emboli with borderline right-sided heart strain and a left lower lobe pulmonary infarct. Small left pleural effusion. Small to moderate hiatus hernia. Mild emphysema. --Venous Doppler:Extensive DVT within the right lower extremity. --ECHO:EF of 50 to 55%; right ventricular cavity size increased. Consistent with right ventricular strain. -- Saturating well on room air On therapeutic Lovenox Transition to [facility] as able Needs outpatient hypercoagulable work-up, screening colonoscopy May need 2 step prior to discharge Microcytic anemia Hemoglobin of 10.8 on admission Iron studies suggestive of AMAIRANI. Fecal occult negative. GI consulted; recommend outpatient endoscopy and colonoscopy; is scheduled for April. Started on iron supplement Plan Anxiety continue duloxetine. GERD Continue PPI Hyperlipidemia continue simvastatin. DVT Px: Lovenox Disposition Patient not interested in Rehab currently Admission and Anticipated Discharge Date Admission Date: March 09, 2022 Subjective Patient is seen and examined at bedside Right leg pain improving Still has right leg swelling from deep vein thrombosis Discussed with patient's daughter at bedside Denies any chest pain, dyspnea, dizziness, nausea, abdominal pain Eager to get discharged Review of Systems Review of Systems: All systems reviewed & are unremarkable except as noted in Subjective Physical Exam Physical Exam: Physical Exam: Vitals signs as noted above General Appearance:Moderately built and nourished, no apparent distress Head: normocephalic, Atraumatic Eyes: normal inspection, EOMI Neck: supple, Trachea midline Respiratory/Chest: Normal breath sounds, CTA, No accessory muscle use Cardiovascular: S1, S2, No murmur Abdomen/GI:Soft, Non tender, Bowel sounds present Extremities/Musculoskeletal:normal inspection, RLE edema Neurologic/Psych:AAOX3, grossly no focal neurological deficits Skin: normal color, warm Results & Data Results & Data ([facility]) Vital Signs (Past 12 Hours) Vital Signs Temp Pulse Pulse Resp BP Pulse Ox O2 Del Method 03/12/22 07:15 80 03/12/22 10:26 36.8 C 77 19 90/56 L 92 Room Air 03/12/22 03:07 37.3 C 93 H 18 103/78 92 Room Air Laboratory Results Short CBC 03/12/22 Range/Units 06:09 WBC 9.43 (4.8-10.8) K/ul Hgb 9.1 L (12.0-16.0) g/dl Hct 28.9 L (34.1-44.9) % Plt Count 335 (130-400) K/uL BMP 03/12/22 06:09 Sodium 138 Potassium 4.0 Chloride 109 H Carbon Dioxide 25 BUN 10 Creatinine 0.87 Glucose 116 H Calcium 8.4 L (1) Acute deep vein thrombosis (DVT) of right lower extremity Affected thrombotic vein of extremity: unspecified vein of extremity Qualif ied Code(s): I82.401 - Acute embolism and thrombosis of unspecified deep veins of right lower extremity
[2022-03-12] MEDS: LORazepam 1 MG TAB PO PRN (19:33)
[2022-03-13 07:37] LABS: Hematocrit (blood only) 28.6 % (34.1-44.9); Hemoglobin 9.1 g/dl (12.0-16.0); Mean Corpuscular Hemoglobin 21.1 pg (25.0-34.0); Mean Corpuscular Hgb Conc 31.8 g/dL (32.0-36.0); Mean Corpuscular Volume 66.4 fL (80.0-100.0); Mean Platelet Volume 10.3 fL (9.4-12.3); Platelet Count 364 K/uL (130-400); RDW Coefficient of Variation 16.9 % (11.5-14.5); RDW Standard Deviation 39.6 fL (36.4-46.3); Red Blood Count 4.31 M/uL (3.93-5.22); White Blood Count 8.09 K/ul (4.8-10.8)
[2022-03-13] MEDS: ENOXAPARIN 80 MG/0.8 ML SYR SQ SCH (08:25)
[2022-03-13] MEDS: SIMVASTATIN 40 MG TAB PO SCH (08:25)
[2022-03-13] MEDS: PANTOprazole 40 MG TAB PO SCH (08:25)
[2022-03-13] MEDS: OXYBUTYNIN CHLORIDE XL 5 MG TABCR PO SCH (08:25)
[2022-03-13] MEDS: DULoxetine HCL 30 MG CAP PO SCH (08:25)
[2022-03-13] MEDS: FERROUS SULFATE 325 MG TAB PO SCH (08:25)
[2022-03-13 09:01] LABS: Creatinine Clr Calc Pharmacy 55.8 ml/min; Est GFR (African American) 77.7 ml/min
--- NOTE | 2022-03-13 13:23 | Hospitalist Progress Note ---
Date of Service March 13, 2022 Assessment & Plan (1) Acute deep vein thrombosis (DVT) of right lower extremity: (2) Pulmonary embolism and infarction: Plan: Submassive PE Right ventricular strain Bilateral PEdue toRLE DVT --CTA:Extensive bilateral pulmonary emboli with borderline right-sided heart strain and a left lower lobe pulmonary infarct. Small left pleural effusion. Small to moderate hiatus hernia. Mild emphysema. --Venous Doppler:Extensive DVT within the right lower extremity. --ECHO:EF of 50 to 55%; right ventricular cavity size increased. Consistent with right ventricular strain. -- Saturating well on room air On therapeutic Lovenox Transition to Eliquis upon discharge Needs outpatient hypercoagulable work-up, screening colonoscopy 2 step: Did not qualify for oxygen Microcytic anemia Hemoglobin of 10.8 on admission Iron studies suggestive of AMAIRANI. Fecal occult negative. GI consulted; recommend outpatient endoscopy and colonoscopy; is scheduled for April. Started on iron supplement Plan Anxiety continue duloxetine. GERD Continue PPI Hyperlipidemia continue simvastatin. DVT Px: Lovenox Disposition Patient not interested in Rehab or Admission and Anticipated Discharge Date Admission Date: March 09, 2022 Subjective Patient is seen and examined at bedside States feeling well Right leg pain much improved Still has some right leg swelling No new complaints Not interested in rehab or home health Denies any chest pain, dyspnea, dizziness, nausea, abdominal pain Review of Systems Review of Systems: All systems reviewed & are unremarkable except as noted in Subjective Physical Exam Physical Exam: Physical Exam: Vitals signs as noted above General Appearance:Moderately built and nourished, no apparent distress Head: normocephalic, Atraumatic Eyes: normal inspection, EOMI Neck: supple, Trachea midline Respiratory/Chest: Normal breath sounds, CTA, No accessory muscle use Cardiovascular: S1, S2, No murmur Abdomen/GI:Soft, Non tender, Bowel sounds present Extremities/Musculoskeletal:normal inspection, RLE edema Neurologic/Psych:AAOX3, grossly no focal neurological deficits Skin: normal color, warm Results & Data Results & Data ([facility]) Vital Signs (Past 12 Hours) Vital Signs Temp Pulse Pulse Pulse Pulse Pulse Resp 03/13/22 11:11 36.4 C L 75 18 03/13/22 10:05 78 03/13/22 08:55 106 H 98 H 83 03/13/22 08:00 03/13/22 07:47 37.3 C 78 18 03/13/22 03:28 36.9 C 85 20 Resp Resp Resp BP Pulse Ox Pulse Ox Pulse Ox 03/13/22 11:11 94/62 L 96 03/13/22 10:05 03/13/22 08:55 18 18 16 93 94 03/13/22 08:00 03/13/22 07:47 114/71 91 03/13/22 03:28 107/70 93 Pulse Ox O2 Del Method 03/13/22 11:11 Room Air 03/13/22 10:05 03/13/22 08:55 95 03/13/22 08:00 Room Air 03/13/22 07:47 Room Air 03/13/22 03:28 Room Air Laboratory Results Short CBC 03/13/22 Range/Units 07:04 WBC 8.09 (4.8-10.8) K/ul Hgb 9.1 L (12.0-16.0) g/dl Hct 28.6 L (34.1-44.9) % Plt Count 364 (130-400) K/uL BMP 03/13/22 07:04 Creatinine 0.87 (1) Acute deep vein thrombosis (DVT) of right lower extremity Affected thrombotic vein of extremity: unspecified vein of extremity Qualified Code(s): I82.401 - Acute embolism and thrombosis of unspecified deep veins of right lower extremity
--- NOTE | 2022-03-13 13:32 | Discharge Summary ---
Date of Service March 13, 2022 Admission HPI Per Admitting Provider History obtained from review of medical records and patient at bedside. Past medical history of hyperlipidemia, GERD and anxiety. Patient presents with 1 week history of right leg swelling which is progressively getting worse along with pain. She reports that the pain started behind her knee just above the calf region and progressively got worse. Patient also noticed left-sided chest pain since the same duration which increases when she takes a deep breath; denies any palpitation. Endorses feeling feverish and generalized fatigue since similar duration. No complaint of dizziness, lightheadedness, abdomen pain or urinary symptoms. No history of recent travel. No history of recent surgery. Denies melena, cough or hemoptysis. She lives with her at home. She is independent of her ADLs. She has a history of smoking; stopped smoking since last Thursday. Patient reports that her last colonoscopy was 5 years ago and she is scheduled for another one in April. On presentation to the ED, patient was found to be tachycardic, afebrile and normotensive. She was saturating well in room air. Leukocytosis of 12 K was present. Hemoglobin is 10.8; microcytic. BUN/creatinine within normal limits. ALP slightly elevated at 138. High since her troponin elevated to 20.6 EKG shows sinus tachycardia. Admission Exam Per Admitting Provider Physical Exam Physical Exam: Constitutional: WD/WN, vitals as above, NAD, sitting up in bed, pleasant, conversing easily Respiratory: normal respiratory effort, lungs clear to auscultation, no wheeze, rales, rhonchi. Normal insp/exp effort, no accessory muscle use Cardiovascular: RRR, no murmur, no edema Vessels: no JVD or carotid bruit Chest: normal inspection of chest Abdomen: normal bowel sounds, soft, nontender, no hepatosplenomegaly Musculoskeletal: Swelling present on right calf extending up to thigh. Tenderness on palpation. No overlying skin changes. Skin: no rashes, warm and dry normal turgor Neurologic: PERRL, EOMI, accommodation nl, no face palsy, no dysarthria CN's II- XI intact bilaterally and moves all extremities Psychiatric: A+Ox3, euthymic affect Lymphatic: no cervical or axillary lymphadenopathy : deferred Principal Diagnosis Acute bilateral pulmonary embolism Right lower extremity deep vein thrombosis Iron deficiency anemia Discharge Data Allergies Allergy/AdvReac Type Severity Reaction Status Date / Time Pertussis Vaccines Allergy Unknown RASH/SWELLING Verified 04/04/15 21:59 AT INJECTION SITE Consultations 03/09/22 17:58 ED Decision to Admit Stat 03/11/22 08:45 Consult Gastroenterology Routine Procedures Performed Laboratory Results WBC 8.09 K/ul (4.8-10.8) 03/13/22 07:04 RBC 4.31 M/uL (3.93-5.22) 03/13/22 07:04 Hgb 9.1 g/dl (12.0-16.0) L 03/13/22 07:04 Hct 28.6 % (34.1-44.9) L 03/13/22 07:04 MCV 66.4 fL (80.0-100.0) L 03/13/22 07:04 MCH 21.1 pg (25.0-34.0) L 03/13/22 07:04 MCHC 31.8 g/dL (32.0-36.0) L 03/13/22 07:04 RDW Std Deviation 39.6 fL (36.4-46.3) 03/13/22 07:04 RDW Coeff of Carole 16.9 % (11.5-14.5) H 03/13/22 07:04 Plt Count 364 K/uL (130-400) 03/13/22 07:04 MPV 10.3 fL (9.4-12.3) 03/13/22 07:04 Immature Gran % (Auto) 0.6 % 03/12/22 06:09 Neut % (Auto) 64.1 % 03/12/22 06:09 Lymph % (Auto) 25.0 % 03/12/22 06:09 Posey % (Auto) 7.7 % 03/12/22 06:09 Eos % (Auto) 2.4 % 03/12/22 06:09 Baso % (Auto) 0.2 % 03/12/22 06:09 Neut # (Auto) 6.03 K/uL (1.4-6.5) 03/12/22 06:09 Lymph # (Auto) 2.36 K/uL (1.2-3.4) 03/12/22 06:09 Posey # (Auto) 0.73 K/uL (0.24-0.82) 03/12/22 06:09 Eos # (Auto) 0.23 K/uL (0-0.50) 03/12/22 06:09 Baso # (Auto) 0.02 K/uL (0-0.2) 03/12/22 06:09 Immature Gran # (Auto) 0.06 K/uL (0.00-0.02) H 03/12/22 06:09 Absolute Nucleated RBC 0.02 K/uL (0-0) H 03/12/22 06:09 Nucleated RBC % (auto) 0.2 % 03/12/22 06:09 Polychromasia 1+ 03/11/22 05:55 Microcytosis Present 03/12/22 06:09 Ovalocytes 1+ 03/11/22 05:55 Acanthocytes (Spur) 1+ 03/09/22 16:11 Rouleaux 1+ 03/12/22 06:09 PT 11.9 Seconds (9.0-12.0) 03/09/22 16:11 INR 1.1 (0.9-1.1) 03/09/22 16:11 APTT 23.8 Seconds (21.0-31.0) 03/09/22 16:11 PTT Ratio 0.9 03/09/22 16:11 Sodium 138 mmol/L (136-145) 03/12/22 06:09 Potassium 4.0 mmol/L (3.5-5.1) 03/12/22 06:09 Chloride 109 mmol/L (98-107) H 03/12/22 06:09 Carbon Dioxide 25 mmol/L (21-32) 03/12/22 06:09 Anion Gap 4 (3-11) 03/12/22 06:09 BUN 10 mg/dl (6-23) 03/12/22 06:09 Creatinine 0.87 mg/dl (0.6-1.2) 03/13/22 07:04 Est Cr Clr Drug Dosing 55.8 ml/min 03/13/22 07:04 Est GFR ( Amer) 77.7 ml/min 03/13/22 07:04 Est GFR (Non-Af Amer) 67.0 ml/min 03/13/22 07:04 BUN/Creatinine Ratio 11.5 (10-20) 03/12/22 06:09 Glucose 116 mg/dl (70-99(Fasting)) H 03/12/22 06:09 Calcium 8.4 mg/dl (8.5-10.1) L 03/12/22 06:09 Iron < 10 mcg/dl (35-150) L 03/10/22 07:17 Unsaturated IBC 262 mcg/dl (155-355) 03/10/22 07:17 Ferritin 101.6 ng/ml (8-388) 03/10/22 07:17 Total Bilirubin 0.4 mg/dl (0.2-1.0) 03/11/22 05:55 AST 25 U/L (13-39) 03/11/22 05:55 ALT 36 U/L (7-52) 03/11/22 05:55 Alkaline Phosphatase 130 U/L (34-104) H 03/11/22 05:55 Troponin I High Sens 14.3 pg/ml (0-14) H D 03/10/22 09:46 B-Natriuretic Peptide 128 pg/ml (0-100) H 03/09/22 22:48 Total Protein 5.9 gm/dl (6.0-8.3) L 03/11/22 05:55 Albumin 2.9 gm/dl (3.4-5.0) L 03/11/22 05:55 Globulin 3.0 gm/dl (2.5-4.0) 03/11/22 05:55 Albumin/Globulin Ratio 1.0 (0.9-2) 03/11/22 05:55 Urine Color Yellow 03/09/22 19:26 Urine Appearance Clear (Clear) 03/09/22 19:26 Urine pH 5.5 (4.5-7.5) 03/09/22 19:26 Ur Specific [place] 1.015 (1.000-1.030) 03/09/22 19:26 Urine Protein Negative (Negative) 03/09/22 19:26 Urine Glucose (UA) Negative (Negative) 03/09/22 19:26 Urine Ketones Negative (Negative) 03/09/22 19:26 Urine Blood Negative (Negative) 03/09/22 19:26 Urine Nitrite Negative (Negative) 03/09/22 19:26 Urine Bilirubin Negative (Negative) 03/09/22 19:26 Urine Urobilinogen Negative (Negative) 03/09/22 19:26 Ur Leukocyte Esterase Negative (Negative) 03/09/22 19:26 Stool Occult Bld Scrn Negative (Negative) 03/10/22 Unknown SARS-CoV-2 (PCR) NEGATIVE (Negative) 03/09/22 16:11 Influenza Type A (PCR) Negative (Neg) 03/09/22 16:11 Influenza Type B (PCR) Negative (Neg) 03/09/22 16:11 RSV (RT-PCR) Negative (Neg) 03/09/22 16:11 Impressions Venous Doppler Study 03/09/22 15:22 RIGHT LOWER EXTREMITY VENOUS DOPPLER HISTORY: Pulmonary embolus. Right leg swelling. r/o DVT COMPARISON STUDY: None. FINDINGS: Nonocclusive thrombus within the right common femoral vein. There is occlusive thrombus seen within the right superficial femoral and right popliteal veins. The majority of the right calf veins are also thrombosed. IMPRESSION: Extensive DVT within the right lower extremity. ACT 112: Negative or not required by law. Electronically signed by: Royce Harmon M.D. 03/09/2022 7:26 PM Chest CTA 03/09/22 16:21 CHEST CTA for PULMONARY ARTERIES CT DOSE: 429.87 mGy.cm HISTORY: Shortness of breath. TECHNIQUE: Multiaxial CT images of the chest were performed following the intravenous administration of contrast to evaluate the pulmonary arteries. Maximal intensity projection images were also obtained. A dose lowering technique was utilized adhering to the principles of ALARA. COMPARISON STUDY: None. FINDINGS: There is a multinodular left thyroid goiter. This demonstrates mild left substernal extension. No mediastinal or hilar lymphadenopathy. There is a small to moderate hiatus hernia. The visualized liver, spleen, and adrenal glands are unremarkable. Normal caliber esophagus. The heart is normal in size. No pericardial effusion. Normal caliber thoracic aorta with no evidence for dissection. Slight flattening of the interventricular septum which could represe nt mild right-sided heart strain. Multiple bilateral pulmonary emboli, right greater than left. This involves the majority of the lobar and segmental pulmonary arteries. Thrombus is also seen within the distal right main pulmonary artery. No acute fractures identified. No pneumothorax. The central airways are patent. Mild emphysema. Groundglass and consolidative airspace opacities within the base of the left lower lobe favor a pulmonary infarct. Ground glass densities within the right lower lobe posteriorly favor dependent changes. IMPRESSION: 1. Extensive bilateral pulmonary emboli with borderline right-sided heart strain and a left lower lobe pulmonary infarct. 2. Small left pleural effusion. 3. Small to moderate hiatus hernia. 4. Mild emphysema. ACT 112: Negative or not required by law. Electronically signed by: Royce Harmon M.D. 03/09/2022 6:15 PM Ordered Studies 03/09/22 15:22 US venous doppler LE RT Stat 03/09/22 16:21 CT angio chest PE protocol Stat Hospital Course (1) Acute deep vein thrombosis (DVT) of right lower extremity: (2) Pulmonary embolism and infarction: Submassive PE Right ventricular strain Bilateral PEdue toRLE DVT --CTA:Extensive bilateral pulmonary emboli with borderline right-sided heart strain and a left lower lobe pulmonary infarct. Small left pleural effusion. Small to moderate hiatus hernia. Mild emphysema. --Venous Doppler:Extensive DVT within the right lower extremity. --ECHO:EF of 50 to 55%; right ventricular cavity size increased. Consistent with right ventricular strain. -- Saturating well on room air On therapeutic Lovenox Transition to Eliquis upon discharge Needs outpatient hypercoagulable work-up, screening colonoscopy 2 step: Did not qualify for oxygen Microcytic anemia Hemoglobin of 10.8 on admission Iron studies suggestive of AMAIRANI. Fecal occult negative. GI consulted; recommend outpatient endoscopy and colonoscopy; is scheduled for April. Started on iron supplement Plan Anxiety continue duloxetine. GERD Continue PPI Hyperlipidemia continue simvastatin. DVT Px: Lovenox Disposition Patient not interested in Rehab or HH Total Time Total Time Spent Total Time Spent (In Minutes): 53 minutes Discharge Plan Discharge Items Patient Disposition: Home - Self-Care Reason For Visit: PE/DVT Discharge Diagnosis: Acute bilateral pulmonary embolism Right lower extremity deep vein thrombosis Iron deficiency anemia Activity: Per Instructions section Exercise/Sports: Gradually increase as tolerated Non-emergency contact: Primary Care Provider Call non-emergency contact if: you have any medication questions, your symptoms worsen, your pain is concerning for you and you have a fever Follow-up/Referrals: Nereyda Palacio DO [Primary Care Provider] - (Date & Time 03/17/2022 11:00 AM Provider Nguyễn Min MD [facility] ) Diet: Regular Addtl Attending Provider Instructions: Follow-up with your primary care physician on 03/17/2022 11:00 AM --Start taking Apixaban (Eliquis) 10mg twice a day for 1 week and then take 5 mg twice a day. (Start taking from 03/13/22) Duration of anticoagulation with Apixaban to be determined by your primary care physician. ---Get hypercoagulable work-up (Blood Test) , screening colonoscopy/Mammogram to identify risk factors for clotting. Seek immediate medical attention if your symptoms reoccur or worsen Please take all medications as instructed on discharge list below. Please call if you have any questions or problems. You can reach a [facility] hospitalist on duty at [facility] 24 hours a day by calling [phone] Pending Studies at Discharge: No Stand-Alone Forms: My [facility], Smoking Cessation Medications and DC Order Prescriptions: New Eliquis 5 mg tablet 5 mg PO BID Qty: 74 0RF ferrous sulfate 325 mg (65 mg iron) Tablet,Delayed Release (Dr/Ec) 325 mg PO QAM Qty: 30 1RF Continued simvastatin 40 mg tablet 40 mg PO DAILY oxybutynin chloride 5 mg tablet extended release 24hr 5 mg PO DAILY omeprazole 20 mg capsule,delayed release(DR/EC) 20 mg PO DAILY lorazepam 1 mg tablet 1 mg PO HS duloxetine [Cymbalta] 30 mg capsule,delayed release(DR/EC) 30 mg PO DAILY Discharge Orders: Discharge Order (Routine); Ordered 03/13/22 Ordered By: Bret Magana Admission Data Admit Date/Time: 03/09/22 18:00 Attending Provider: Bret Magana Admit Provider: Jonny Benedict Primary Care Provider: Nereyda Palacio Other Providers: Jonny Benedict ; Denise Vivar ; Franky Cr ; Stephie Jones ; Anastasia Tucker ; Madison Estrada ; Tiffanie Diego ; Lenny Smith ; Petr Stiles ; Jr Alcocer ; Aj Ortiz ; Sohail Grace ; Linda Brewer ; Rosa Webster ; Cherelle Martinez ; Joanna Sosa ; Mary Chiang ; Jun Borja ; Ceferino Viera ; Ayesha Santacruz ; Shaquille Gonzalez Jr
== END 2022-03-13 14:49 | disposition home or self-care (01) | DRG 299 ==
LOC: ED 15:14 → 2S 18:00 → SUATTDRO 18:00 → 2S 19:59

== ENCOUNTER 2022-05-27 18:26 | Observation (INO) ==
--- NOTE | 2022-05-27 18:38 | ED Triage Note ---
Date of Service May 27, 2022 History of Present Illness This patient was briefly evaluated while in triage. An abbreviated physical exam was performed. This patient is a 71-year-old Female who presents to the ED for evaluation of weakness. Complaining of headache and decreased energy and weakness. She had a DVT in her right leg and PE in March and the symptoms feel similar. However, denies chest pain, SOB. Pain in the right calf. Symptoms started yesterday. Still taking her Eliquis as prescribed without missed doses. Feels like she has a fever, but has not checked temp Physical Exam GENERAL: Non-toxic and in no acute distress. HEENT: Pupils equal. No obvious scleral icterus. HEART: Regular rate and rhythm. LUNGS: Clear to auscultation. Rales in the LLL. No wheezes or rhonchi. No accessory muscle use. ABDOMEN: Soft, non-tender to palpation. NEURO: Alert and oriented. No obvious neurological deficits on quick neuro exam. MUSCULOSKELETAL: Tenderness to palpation in the right calf. Initial orders for labs and / or imaging were placed and patient was placed in the waiting area until a bed is available. Please see further documentation for the full ED course. MDM / Impression Impression Impression: Pneumonia Impression: Pneumonia Qualifiers: Pneumonia type: due to unspecified organism Laterality: left Lung location: lower lobe of lung Qualified Code(s): J18.9 - Pneumonia, unspecified organism
[2022-05-27 19:04] LABS: Basophils # (auto) 0.05 K/uL (0-0.2); Basophils % (auto) 0.2 %; Eosinophils # (auto) 0.01 K/uL (0-0.50); Hematocrit (blood only) 36.2 % (37.0-47.0); Immature Granulocytes # (auto) 0.15 K/uL (0.01-0.20); Immature Granulocytes % (auto) 0.6 %; Lymphocytes # (auto) 2.62 K/uL (1.2-3.4); Lymphocytes % (auto) 11.3 %; Mean Corpuscular Hemoglobin 24.2 pg (25.0-34.0); Mean Corpuscular Hgb Conc 33.1 g/dL (32.0-36.0); Mean Platelet Volume 10.3 fL (9.4-12.4); Monocytes # (auto) 0.93 K/uL (0.11-0.59); Neutrophils # (auto) 19.39 K/uL (1.40-6.50); Neutrophils % (auto) 83.9 %; Platelet Count 273 K/uL (130-400); RDW Coefficient of Variation 18.6 % (11.5-14.5); RDW Standard Deviation 48.9 fL (36.4-46.3); Red Blood Count 4.96 M/uL (4.20-5.40); White Blood Count 23.15 K/ul (4.8-10.8)
[2022-05-27] MEDS ORDERED: ACETAMINOPHEN 325 MG TAB PO STA (19:06)
[2022-05-27] MEDS ORDERED: SODIUM CHLORIDE 0.9% 1000ML 1,000 ML IV ONE ×2 (19:06→19:08)
--- NOTE | 2022-05-27 19:08 | Emergency Department Note ---
Impression & Plan Pneumonia ADMIT ED Provider Note HPI: The patient is a 71-year-old female who presents the emergency department with a chief complaint of generalized weakness, fatigue, states she has had a mild headache. Patient states she has had the symptoms now for the past 2 days. Patient denies any nausea or vomiting, denies any chest pain or shortness of breath. Patient tells me that in general she has just been very tired and feels like sleeping. She is concerned because she states that she had similar symptoms when she was diagnosed with a DVT this past March. Patient states she has had some pain as well on her right leg. On arrival here to the ED the patient is hemodynamically stable, she is in no acute distress on my initial assessment. Denies any chest pain or shortness of breath. ROS: - Per HPI *Outpatient medications and allergy history reviewed. *Pertinent external medical records reviewed. 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 Medical Decision Making: Patient presented to the emergency department with vague symptoms of generalized weakness, states she has had a mild headache, states that her symptoms developed yesterday. She is afebrile on arrival, she has not had any documented fevers at home recently, on arrival here to the ED she is alert, appears overall nontoxic on my initial evaluation. IV was established, lab work obtained, patient was maintained on dial maker. Lab work does show evidence of leukocytosis of approximately 23,000, blood cultures were ordered. Hemoglobin is stable, platelet count is within normal limits, patient CMP does not show any critical electrolyte abnormalities, no acute kidney injury, mild hypomagnesemia at 1.4 which was repleted via IV. No transaminitis, troponin is negative, EKG does not show any acute ischemic changes. CT imaging of the head was obtained as the patient was complaining of a headache, this is negative for any acute intracranial process. Urinalysis is negative, chest x-ray shows possible left lower lobe pneumonia. Given leukocytosis and lack of source of other infection, patient was treated prophylactically with ceftriaxone and azithromycin. She was given 30 cc/kg of IV fluid. Blood pressure remained stable, patient did have some intermittent episodes of sinus tachycardia here in the ED this did improve however on my reassessment. On reassessment the patient remains alert, I did discuss the above findings with the patient, at this time I did recommend admission given her leukocytosis and finding of pneumonia, recommended IV antibiotic therapy and follow-up on blood cultures. Patient is in agreement. Patient did complain of a mild headache while here in the ED, she overall appears nontoxic and tells me that her headache has not been severe. She has full range of motion of the cervical spine, overall does not appear meningitic on my exam. I did offer lumbar puncture however at this time patient declines, I think this is reasonable given her overall well appearance and finding of pneumonia on chest x-ray as possible source for her leukocytosis. She is afebrile here in the ED. I discussed all the above findings with the on-call hospitalist for [facility], Dr. Zhang, patient will be accepted to the hospitalist service for further management, continuation of IV antibiotics, and follow-up on blood cultures. Patient and her at the bedside are in agreement to the above plan the patient was admitted in stable condition. Consultants: Hospitalist service, Dr. Zhang Disposition discussion held by myself with: Patient and at the bedside Diagnosis: 1. Generalized weakness, acute 2. Leukocytosis, acute 3. Left lower lobe pneumonia, acute 4. 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 Beliefs That Will Affect Care: None Current Living Situation: Spouse Feels Safe at Home: Yes Assistive Devices: None Allergies Allergies Allergy/AdvReac Type Severity Reaction Status Date / Time Pertussis Vaccines Allergy Unknown RASH/SWELLING Verified 05/27/22 20:39 AT INJECTION SITE Home Meds Home Medications Medication Instructions Recorded Confirmed duloxetine 30 mg capsule,delayed 30 mg PO QAM 03/09/22 05/27/22 release (Cymbalta) lorazepam 1 mg tablet 1 mg PO HS 03/09/22 05/27/22 omeprazole 20 mg capsule,delayed 20 mg PO DAILYBB 03/09/22 05/27/22 release oxybutynin chloride 5 mg 5 mg PO QAM 03/09/22 05/27/22 tablet,extended release 24 hr simvastatin 40 mg tablet 40 mg PO HS 03/09/22 05/27/22 Previous Rx's Medication Instructions Recorded apixaban 5 mg tablet (Eliquis) 5 mg PO BID #74 tabs 03/10/22 ferrous sulfate 325 mg (65 mg 325 mg PO QAM #30 tabs 03/13/22 iron) tablet,delayed release Results & Data (ED) Vital Signs Vital Signs - 24 hr 05/27/22 18:34 05/27/22 19:02 05/27/22 19:02 Temperature 37.5 C Temperature Source Oral Pulse Rate 112 H 105 H Pulse Rate [Apical] 100 H Pulse Rate from SpO2 Sensor Pulse Rhythm Regular Regular Pulse Strength Normal Respiratory Rate 21 16 20 Respiratory Effort / Characteristics Spontaneous Non-Labored Spontaneous Respiratory Depth Normal Normal Respiratory Pattern Regular Blood Pressure 108/71 Blood Pressure [Right Arm] 105/60 Blood Pressure Mean 83 Blood Pressure Mean [Right Arm] 75 Blood Pressure Position Sitting Pulse Oximetry 93 94 94 Oxygen Delivery Method Room Air Room Air Room Air Sepsis Recent Fever Within 48 Hours No Sepsis New/Unexplained Change in Mental Status No Sepsis Action Taken by Nursing Physician Notified 05/27/22 19:09 05/27/22 20:00 05/27/22 19:09 Temperature 37.1 C Temperature Source Oral Pulse Rate 102 H 102 H Pulse Rate [Apical] 101 H Pulse Rate from SpO2 Sensor 104 H Pulse Rhythm Pulse Strength Respiratory Rate 20 24 Respiratory Effort / Characteristics Non-Labored Spontaneous Respiratory Depth Normal Respiratory Pattern Blood Pressure Blood Pressure [Right Arm] 97/58 L Blood Pressure Mean Blood Pressure Mean [Right Arm] 71 Blood Pressure Position Pulse Oximetry 97 93 Oxygen Delivery Method Room Air Sepsis Recent Fever Within 48 Hours Sepsis New/Unexplained Change in Mental Status Sepsis Action Taken by Nursing 05/27/22 20:03 05/27/22 20:30 05/27/22 22:06 Temperature Temperature Source Pulse Rate 97 H 89 78 Pulse Rate [Apical] Pulse Rate from SpO2 Sensor 97 H 88 Pulse Rhythm Pulse Strength Respiratory Rate 24 24 25 H Respiratory Effort / Characteristics Respiratory Depth Respiratory Pattern Blood Pressure 116/73 Blood Pressure [Right Arm] Blood Pressure Mean 87 Blood Pressure Mean [Right Arm] Blood Pressure Position Pulse Oximetry 97 96 Oxygen Delivery Method Sepsis Recent Fever Within 48 Hours Sepsis New/Unexplained Change in Mental Status Sepsis Action Taken by Nursing 05/27/22 22:07 Temperature Temperature Source Pulse Rate 88 Pulse Rate [Apical] Pulse Rate from SpO2 Sensor 86 Pulse Rhythm Pulse Strength Respiratory Rate 27 H Respiratory Effort / Characteristics Respiratory Depth Respiratory Pattern Blood Pressure 106/61 Blood Pressure [Right Arm] Blood Pressure Mean 76 Blood Pressure Mean [Right Arm] Blood Pressure Position Pulse Oximetry 97 Oxygen Delivery Method Sepsis Recent Fever Within 48 Hours Sepsis New/Unexplained Change in Mental Status Sepsis Action Taken by Nursing Laboratory Data 05/27/22 18:44 05/27/22 18:44 Lab Results 05/27/22 05/27/22 05/27/22 Range/Units 18:44 18:44 18:44 WBC 23.15 H (4.8-10.8) K/ul RBC 4.96 (4.20-5.40) M/uL Hgb 12.0 (12.0-16.0) g/dl Hct 36.2 L (37.0-47.0) % MCV 73.0 L (80.0-100.0) fL MCH 24.2 L (25.0-34.0) pg MCHC 33.1 (32.0-36.0) g/dL RDW Std Deviation 48.9 H (36.4-46.3) fL RDW Coeff of Carole 18.6 H (11.5-14.5) % Plt Count 273 (130-400) K/uL MPV 10.3 (9.4-12.4) fL Immature Gran % (Auto) 0.6 % Neut % (Auto) 83.9 % Lymph % (Auto) 11.3 % Ogle % (Auto) 4.0 % Eos % (Auto) 0.0 % Baso % (Auto) 0.2 % Neut # (Auto) 19.39 H (1.40-6.50) K/uL Lymph # (Auto) 2.62 (1.2-3.4) K/uL Ogle # (Auto) 0.93 H (0.11-0.59) K/uL Eos # (Auto) 0.01 (0-0.50) K/uL Baso # (Auto) 0.05 (0-0.2) K/uL Immature Gran # (Auto) 0.15 (0.01-0.20) K/uL PT Cancelled INR Cancelled APTT Cancelled PTT Ratio Cancelled Sodium 133 L (136-145) mmol/L Potassium 4.2 (3.5-5.1) mmol/L Chloride 103 (98-107) mmol/L Carbon Dioxide 22 (21-32) mmol/L Anion Gap 8 (3-11) BUN 24 H (6-23) mg/dl Creatinine 0.95 (0.6-1.2) mg/dl Est Cr Clr Drug Dosing 52.7 ml/min Est GFR ( Amer) 69.8 ml/min Est GFR (Non-Af Amer) 60.3 ml/min BUN/Creatinine Ratio 25.3 H (10-20) Glucose 136 H (70-99(Fasting)) mg/dl Lactate (0.4-2.0) mmol/L Calcium 9.1 (8.6-10.3) mg/dl Magnesium 1.4 L (1.7-2.4) mg/dl Total Bilirubin 0.4 (0.2-1.0) mg/dl AST 32 (13-39) U/L ALT 39 (7-52) U/L Alkaline Phosphatase 93 (34-104) U/L Troponin I High Sens 6.6 (0-14) pg/ml Total Protein 6.7 (6.0-8.3) gm/dl Albumin 3.8 (3.4-5.0) gm/dl Globulin 2.9 (2.5-4.0) gm/dl Albumin/Globulin Ratio 1.3 (0.9-2) TSH (0.300-4.500) uIu/ml Free T4 (0.61-1.60) ng/dl Urine Color Urine Appearance (Clear) Urine pH (4.5-7.5) Ur Specific [place] (1.000-1.030) Urine Protein (Negative) Urine Glucose (UA) (Negative) Urine Ketones (Negative) Urine Blood (Negative) Urine Nitrite (Negative) Urine Bilirubin (Negative) Urine Urobilinogen (Negative) Ur Leukocyte Esterase (Negative) SARS-CoV-2 (PCR) (Negative) Influenza Type A (PCR) (Neg) Influenza Type B (PCR) (Neg) RSV (RT-PCR) (Neg) 05/27/22 05/27/22 05/27/22 Range/Units 18:44 18:44 18:58 WBC (4.8-10.8) K/ul RBC (4.20-5.40) M/uL Hgb (12.0-16.0) g/dl Hct (37.0-47.0) % MCV (80.0-100.0) fL MCH (25.0-34.0) pg MCHC (32.0-36.0) g/dL RDW Std Deviation (36.4-46.3) fL RDW Coeff of Carole (11.5-14.5) % Plt Count (130-400) K/uL MPV (9.4-12.4) fL Immature Gran % (Auto) % Neut % (Auto) % Lymph % (Auto) % Ogle % (Auto) % Eos % (Auto) % Baso % (Auto) % Neut # (Auto) (1.40-6.50) K/uL Lymph # (Auto) (1.2-3.4) K/uL Ogle # (Auto) (0.11-0.59) K/uL Eos # (Auto) (0-0.50) K/uL Baso # (Auto) (0-0.2) K/uL Immature Gran # (Auto) (0.01-0.20) K/uL PT INR APTT PTT Ratio Sodium (136-145) mmol/L Potassium (3.5-5.1) mmol/L Chloride (98-107) mmol/L Carbon Dioxide (21-32) mmol/L Anion Gap (3-11) BUN (6-23) mg/dl Creatinine (0.6-1.2) mg/dl Est Cr Clr Drug Dosing ml/min Est GFR ( Amer) ml/min Est GFR (Non-Af Amer) ml/min BUN/Creatinine Ratio (10-20) Glucose (70-99(Fasting)) mg/dl Lactate 1.5 (0.4-2.0) mmol/L Calcium (8.6-10.3) mg/dl Magnesium (1.7-2.4) mg/dl Total Bilirubin (0.2-1.0) mg/dl AST (13-39) U/L ALT (7-52) U/L Alkaline Phosphatase (34-104) U/L Troponin I High Sens (0-14) pg/ml Total Protein (6.0-8.3) gm/dl Albumin (3.4-5.0) gm/dl Globulin (2.5-4.0) gm/dl Albumin/Globulin Ratio (0.9-2) TSH < 0.010 L (0.300-4.500) uIu/ml Free T4 1.32 (0.61-1.60) ng/dl Urine Color Urine Appearance (Clear) Urine pH (4.5-7.5) Ur Specific [place] (1.000-1.030) Urine Protein (Negative) Urine Glucose (UA) (Negative) Urine Ketones (Negative) Urine Blood (Negative) Urine Nitrite (Negative) Urine Bilirubin (Negative) Urine Urobilinogen (Negative) Ur Leukocyte Esterase (Negative) SARS-CoV-2 (PCR) NEGATIVE (Negative) Influenza Type A (PCR) Negative (Neg) Influenza Type B (PCR) Negative (Neg) RSV (RT-PCR) Negative (Neg) 05/27/22 05/27/22 Range/Units 19:52 19:54 WBC (4.8-10.8) K/ul RBC (4.20-5.40) M/uL Hgb (12.0-16.0) g/dl Hct (37.0-47.0) % MCV (80.0-100.0) fL MCH (25.0-34.0) pg MCHC (32.0-36.0) g/dL RDW Std Deviation (36.4-46.3) fL RDW Coeff of Carole (11.5-14.5) % Plt Count (130-400) K/uL MPV (9.4-12.4) fL Immature Gran % (Auto) % Neut % (Auto) % Lymph % (Auto) % Ogle % (Auto) % Eos % (Auto) % Baso % (Auto) % Neut # (Auto) (1.40-6.50) K/uL Lymph # (Auto) (1.2-3.4) K/uL Ogle # (Auto) (0.11-0.59) K/uL Eos # (Auto) (0-0.50) K/uL Baso # (Auto) (0-0.2) K/uL Immature Gran # (Auto) (0.01-0.20) K/uL PT 12.4 H INR 1.2 H APTT 29.1 PTT Ratio 1.1 Sodium (136-145) mmol/L Potassium (3.5-5.1) mmol/L Chloride (98-107) mmol/L Carbon Dioxide (21-32) mmol/L Anion Gap (3-11) BUN (6-23) mg/dl Creatinine (0.6-1.2) mg/dl Est Cr Clr Drug Dosing ml/min Est GFR ( Amer) ml/min Est GFR (Non-Af Amer) ml/min BUN/Creatinine Ratio (10-20) Glucose (70-99(Fasting)) mg/dl Lactate (0.4-2.0) mmol/L Calcium (8.6-10.3) mg/dl Magnesium (1.7-2.4) mg/dl Total Bilirubin (0.2-1.0) mg/dl AST (13-39) U/L ALT (7-52) U/L Alkaline Phosphatase (34-104) U/L Troponin I High Sens (0-14) pg/ml Total Protein (6.0-8.3) gm/dl Albumin (3.4-5.0) gm/dl Globulin (2.5-4.0) gm/dl Albumin/Globulin Ratio (0.9-2) TSH (0.300-4.500) uIu/ml Free T4 (0.61-1.60) ng/dl Urine Color Yellow Urine Appearance Clear (Clear) Urine pH 6.0 (4.5-7.5) Ur Specific [place] 1.011 (1.000-1.030) Urine Protein Negative (Negative) Urine Glucose (UA) Negative (Negative) Urine Ketones Negative (Negative) Urine Blood Negative (Negative) Urine Nitrite Negative (Negative) Urine Bilirubin Negative (Negative) Urine Urobilinogen Negative (Negative) Ur Leukocyte Esterase Negative (Negative) SARS-CoV-2 (PCR) (Negative) Influenza Type A (PCR) (Neg) Influenza Type B (PCR) (Neg) RSV (RT-PCR) (Neg) Administered Medications Discontinued Medications Acetaminophen (Acetaminophen 325 Mg Tab) 650 mg PO NOW STA Stop: 05/27/22 19:07 Last Admin: 05/27/22 19:13 Dose: 650 mg Documented By: HEENA Sodium Chloride (Nss 1000ml) 1,000 mls @ 999 mls/hr IV .Q1H1M ONE Stop: 05/27/22 20:06 Last Infusion: 05/27/22 20:25 Dose: 0 mls/hr Documented By: Admin: 05/27/22 19:13 Dose: 999 mls/hr Documented By: HEENA Sodium Chloride (Nss 1000ml) 1,000 mls @ 999 mls/hr IV .Q1H1M ONE Stop: 05/27/22 20:08 Last Infusion: 05/27/22 20:58 Dose: 0 mls/hr Documented By: Admin: 05/27/22 19:13 Dose: 999 mls/hr Documented By: HEENA Ceftriaxone Sodium (Rocephin) 2,000 mg in 70 mls @ 140 mls/hr IV NOW STA Stop: 05/27/22 20:17 Last Infusion: 05/27/22 20:31 Dose: 0 mls/hr Documented By: Admin: 05/27/22 19:57 Dose: 140 mls/hr Documented By: HEENA Azithromycin 500 mg/ Dextrose 255 mls @ 125 mls/hr IV ONE ONE Stop: 05/27/22 21:50 Last Admin: 05/27/22 20:32 Dose: 125 mls/hr Documented By: HEENA Magnesium Sulfate/Dextrose (Magnesium Sulfate / D5w) 1 gm in 100 mls @ 200 mls/hr IV Q30M SANDI Stop: 05/27/22 21:02 Last Infusion: 05/27/22 22:01 Dose: 0 mls/hr Documented By: Admin: 05/27/22 21:29 Dose: 200 mls/hr Documented By: Infusion: 05/27/22 21:02 Dose: 200 mls/hr Documented By: Admin: 05/27/22 20:32 Dose: 200 mls/hr Documented By: HEENA Sodium Chloride (Nss) 500 mls @ 999 mls/hr IV .Q31M ONE Stop: 05/27/22 20:33 Last Infusion: 05/27/22 21:31 Dose: 0 mls/hr Documented By: Admin: 05/27/22 20:32 Dose: 999 mls/hr Documented By: HEENA Imaging Data Radiologist's Impression: Chest X-Ray 05/27/22 18:38 SINGLE VIEW CHEST CLINICAL HISTORY: Pneumonia FINDINGS: An AP, portable, upright chest radiograph is compared to study dated 09/09/2013 and correlated with chest CT dated 03/09/2022. The heart is enlarged noting atherosclerotic calcification of the thoracic aorta. The pulmonary vasculature is noncongested. Dependent consolidation is noted at the left lung base. Mild atelectasis is seen on the right. No large pleural effusion or pneumothorax is seen. The skeletal structures are osteopenic. Bony thorax is grossly intact. IMPRESSION: 1. Cardiomegaly without radiographic evidence of congestive failure. 2. There is left basilar consolidation. This could present atelectasis and/or pneumonia. Clinical correlation will be required and radiographic follow-up to resolution is recommended. ACT 112: Negative or not required by law. Electronically signed by: Heber Avila M.D. 05/27/2022 7:11 PM Venous Doppler Study 05/27/22 18:38 Exam(s): US VENOUS RIGHT LOWER EXTREMITY EXAM: US Duplex Right Lower Extremity Veins CLINICAL HISTORY: Right calf pain, h/o DVT. TECHNIQUE: Real-time duplex ultrasound scan of the right lower extremity veins integrating B-mode two-dimensional vascular structure, Doppler spectral analysis, color flow Doppler imaging and compression. COMPARISON: Right lower extremity duplex dated 03/09/2022 FINDINGS: Deep veins: The proximal right femoral vein is partially compressible. The mid to distal femoral vein are nearly occlusive in appearance and noncompressible. No residual thrombus noted in the right common femoral vein or within the proximal profunda femoral vein. The peroneal veins remain occluded. The anterior tibial and posterior tibial veins are now patent. The popliteal vein is partially compressible with internal vascular flow. Superficial veins: No thrombus in the saphenofemoral junction. Soft tissues: No acute findings. No popliteal cyst. IMPRESSION: 1. The proximal right femoral vein is partially compressible. The mid to distal femoral vein are nearly occlusive in appearance and noncompressible. Findings are consistent with persistent deep vein thrombosis of the right femoral vein, questionably minimally improved proximally when compared to the previous examination. 2. No residual thrombus noted in the right common femoral vein or within the proximal profunda femoral vein. 3. The popliteal vein is partially compressible with internal vascular flow. Findings are consistent with partial recanalization of right popliteal vein. Electronically signed by: Thuan Weiner MD 05/27/22 21:[address] 05/27/22 19:08 CT SCAN OF THE BRAIN WITHOUT IV CONTRAST CLINICAL HISTORY: Headache. COMPARISON STUDY: No priors. TECHNIQUE: Unenhanced axial CT scan of the brain is performed from the vertex to the skull base. A dose lowering technique was utilized adhering to the principles of ALARA. CT DOSE: 690.05 mGycm FINDINGS: Brain parenchyma: There is age-related involutional change noting mild to moderate subcortical and periventricular microangiopathic disease. There is no hemorrhage, mass effect, or evidence of acute territorial ischemia by CT criteria. Glaser-white matter differentiation is preserved. No extra-axial fluid collection is seen. Ventricles, sulci, cisterns: Prominent secondary to involutional change. Intracranial vasculature: There is atherosclerotic calcification of the cavernous carotid arteries. Calvarium: Unremarkable. Sinuses and mastoids: The visualized paranasal sinuses are clear. The mastoid air cells are well pneumatized. Orbits: The bony orbits are grossly intact. There is a left ocular lens implant. IMPRESSION: There is no hemorrhage, mass effect, or evidence of acute territorial ischemia by CT criteria. ACT 112: Negative or not required by law. Electronically signed by: Heber Avila M.D. 05/27/2022 7:50 PM Discharge Plan Visit Data Chief Complaint: Weakness Stated Complaint: HEADACHE,TIRED,WEAKNESS,HAD BLOOD CLOT IN [facility] ED Provider: Dante Anaya Discharge Problem: Pneumonia Forms Stand Alone Forms: My [facility] Prescriptions Prescriptions: No Action simvastatin 40 mg tablet 40 mg PO HS oxybutynin chloride 5 mg tablet extended release 24hr 5 mg PO QAM omeprazole 20 mg capsule,delayed release(DR/EC) 20 mg PO DAILYBB lorazepam 1 mg tablet 1 mg PO HS duloxetine [Cymbalta] 30 mg capsule,delayed release(DR/EC) 30 mg PO QAM Eliquis 5 mg tablet 5 mg PO BID Qty: 74 0RF ferrous sulfate 325 mg (65 mg iron) Tablet,Delayed Release (Dr/Ec) 325 mg PO QAM Qty: 30 1RF Referrals Referrals: Nereyda Palacio DO [Primary Care Provider] - Pneumonia Qualifiers: Pneumonia type: due to unspecified organism Laterality: left Lung location: lower lobe of lung Qualified Code(s): J18.9 - Pneumonia, unspecified organism
--- NOTE | 2022-05-27 19:13 | XRay Report ---
SINGLE VIEW CHEST CLINICAL HISTORY: Pneumonia FINDINGS: An AP, portable, upright chest radiograph is compared to study dated 09/09/2013 and correlat ed with chest CT dated 03/09/2022. The heart is enlarged noting atherosclerotic calcification of the th oracic aorta. The pulmonary vasculature is noncongested. Dependent consolidation is noted at the left lung base. Mild atelectasis is seen on the right. No large pleural effusion or pneumothorax is seen. The skeletal structures are osteopenic. Bony thorax is grossly intact. IMPRESSION: 1. Cardiomegaly without radiographic evidence of congestive failure. 2. There is left basilar consolidation. This could present atelectasis and/or pneumonia. Clinical cor relation will be required and radiographic follow-up to resolution is recommended. ACT 112: Negative or not required by law. Electronically signed by: Heber Avila M.D. 05/27/2022 7:11 PM
[2022-05-27 19:43] LABS: Albumin Globulin Ratio 1.3 (0.9-2); Albumin Level 3.8 gm/dl (3.4-5.0); BUN Creatinine Ratio 25.3 (10-20); Bilirubin,Total 0.4 mg/dl (0.2-1.0); Calcium 9.1 mg/dl (8.6-10.3); Creatinine Clr Calc Pharmacy 52.7 ml/min; Est GFR (African American) 69.8 ml/min; Est GFR (Non-African American) 60.3 ml/min; Globulin 2.9 gm/dl (2.5-4.0); Magnesium 1.4 mg/dl (1.7-2.4); Potassium 4.2 mmol/L (3.5-5.1); Total Protein 6.7 gm/dl (6.0-8.3)
[2022-05-27 19:45] LABS: Influenza A virus by PCR Negative (Neg); Influenza B virus by PCR Negative (Neg); RSV by PCR Negative (Neg); SARS CoV2 RNA(COVID-19) Ceph NEGATIVE (Negative)
[2022-05-27 19:48] LABS: Troponin I High Sensitivity 6.6 pg/ml (0-14)
[2022-05-27] MEDS ORDERED: cefTRIAXone SODIUM 2,000 MG/70 ML BAG IV STA (19:48)
[2022-05-27] MEDS ORDERED: AZITHROMYCIN 500 MG in DEXTROSE 5% 250 ML IV ONE (19:48)
--- NOTE | 2022-05-27 19:52 | CT Scan Report ---
CT SCAN OF THE BRAIN WITHOUT IV CONTRAST CLINICAL HISTORY: Headache. COMPARISON STUDY: No priors. TECHNIQUE: Unenhanced axial CT scan of the brain is performed from the vertex to the skull base. A do se lowering technique was utilized adhering to the principles of ALARA. CT DOSE: 690.05 mGycm FINDINGS: Brain parenchyma: There is age-related involutional change noting mild to moderate subcortical and pe riventricular microangiopathic disease. There is no hemorrhage, mass effect, or evidence of acute ter ritorial ischemia by CT criteria. Glaser-white matter differentiation is preserved. No extra-axial flui d collection is seen. Ventricles, sulci, cisterns: Prominent secondary to involutional change. Intracranial vasculature: There is atherosclerotic calcification of the cavernous carotid arteries. Calvarium: Unremarkable. Sinuses and mastoids: The visualized paranasal sinuses are clear. The mastoid air cells are well pneu matized. Orbits: The bony orbits are grossly intact. There is a left ocular lens implant. IMPRESSION: There is no hemorrhage, mass effect, or evidence of acute territorial ischemia by CT nelly corley. ACT 112: Negative or not required by law. Electronically signed by: Heber Avila M.D. 05/27/2022 7:50 PM
[2022-05-27 20:02] LABS: Thyroid Stimulating Hormone < 0.010 uIu/ml (0.300-4.500)
[2022-05-27] MEDS ORDERED: SODIUM CHLORIDE 0.9% 500 ML IV ONE (20:03)
[2022-05-27] MEDS: MAGNESIUM SULFATE / D5W 1 GM/100 ML BAG IV SCH ×2 (20:32→21:29)
[2022-05-27 20:41] LABS: T4 Free Thyroxine 1.32 ng/dl (0.61-1.60)
[2022-05-27 20:58] LABS: INR 1.2 (0.9-1.1); Partial Thromboplastin Ratio 1.1; Partial Thromboplastin Time 29.1 Seconds (21.0-31.0); Prothrombin Time 12.4 Seconds (9.0-12.0)
[2022-05-27 21:07] LABS: Appearance Urine Clear (Clear); Bilirubin Urine Negative (Negative); Blood Urine Negative (Negative); Color Urine Yellow; Glucose Urine UA Negative (Negative); Ketones Urine Negative (Negative); Leukocyte Esterase Urine Negative (Negative); Nitrite Urine Negative (Negative); Protein Urine Negative (Negative); Specific Gravity Urine 1.011 (1.000-1.030); Urobilinogen Urine Negative (Negative)
--- NOTE | 2022-05-27 21:36 | Ultrasound Report ---
Exam(s): US VENOUS RIGHT LOWER EXTREMITY EXAM: US Duplex Right Lower Extremity Veins CLINICAL HISTORY: Right calf pain, h/o DVT. TECHNIQUE: Real-time duplex ultrasound scan of the right lower extremity veins integrating B-mode two-dimensional vascular structure, Doppler spectral analysis, color flow Doppler imaging and compression. COMPARISON: Right lower extremity duplex dated 03/09/2022 FINDINGS: Deep veins: The proximal right femoral vein is partially compressible. The mid to distal femoral vein are nearly occlusive in appearance and noncompressible. No residual thrombus noted in the right common femoral vein or within the proximal profunda femoral vein. The peroneal veins remain occluded. The anterior tibial and posterior tibial veins are now patent. The popliteal vein is partially compressible with internal vascular flow. Superficial veins: No thrombus in the saphenofemoral junction. Soft tissues: No acute findings. No popliteal cyst. IMPRESSION: 1. The proximal right femoral vein is partially compressible. The mid to distal femoral vein are nearly occlusive in appearance and noncompressible. Findings are consistent with persistent deep vein thrombosis of the right femoral vein, questionably minimally improved proximally when compared to the previous examination. 2. No residual thrombus noted in the right common femoral vein or within the proximal profunda femoral vein. 3. The popliteal vein is partially compressible with internal vascular flow. Findings are consistent with partial recanalization of right popliteal vein. Electronically signed by: Thuan Weiner MD 05/27/22 21:35 PM
--- NOTE | 2022-05-28 00:04 | History & Physical Report ---
Date of Service May 28, 2022 Assessment & Plan (1) Sepsis: Plan: ? Secondary to atypical pneumonia Patient without cough symptoms. 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 Eliquis Full code Text document was generated using [employer] voice recognition software. It may contain grammatical or spelling errors. Kindly contact undersigned for clarification of any documentation item in question. History of Present Illness Chief Complaint: Weakness, fatigue, headache Primary Care Provider: Nereyda Palacio DO History obtained from patient and records. Medical history significant for PE DVT on Eliquis, hyperlipidemia, chronic anemia (baseline hemoglobin of 11), anxiety/mood disorder, past tobacco abuse. Last confinement March 2022 for acute PE DVT, submassive PE with RV strain. Patient transitioned to [facility] on discharge. Patient not feeling well the last 2 days. Generalized weakness, fatigue, mild headache symptoms. Denies cough, abdominal pain, dysuria, diarrhea symptoms. Low-grade fever at home. Not sure about sick contacts. No neck pain. Patient completed COVID-19 vaccination. IV cefepime administered at the ER for possible sepsis. 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 Medical History as above Surgical History : Cataract surgery, BTL, partial hysterectomy, right ooph orectomy, tonsillectomy, vitrectomy, vaginal sling procedure Family History : Colon cancer, DM Personal/Social history : Past tobacco abuse, occasional EtOH intake Allergies Allergy/AdvReac Type Severity Reaction Status Date / Time Pertussis Vaccines Allergy Unknown RASH/SWELLING Verified 05/27/22 20:39 AT INJECTION SITE Home Medications Medication Instructions Recorded Confirmed Type duloxetine 30 mg capsule,delayed 30 mg PO QAM 03/09/22 05/27/22 History release (Cymbalta) lorazepam 1 mg tablet 1 mg PO HS 03/09/22 05/27/22 History omeprazole 20 mg capsule,delayed 20 mg PO DAILYBB 03/09/22 05/27/22 History release oxybutynin chloride 5 mg 5 mg PO QAM 03/09/22 05/27/22 History tablet,extended release 24 hr simvastatin 40 mg tablet 40 mg PO HS 03/09/22 05/27/22 History apixaban 5 mg tablet (Eliquis) 5 mg PO BID #74 tabs 03/10/22 05/27/22 Rx ferrous sulfate 325 mg (65 mg 325 mg PO QAM #30 tabs 03/13/22 05/27/22 Rx iron) tablet,delayed release Past Med/Surg History Medical History Anxiety Arthritis Back pain (09/09/13) Back strain Depression Lumbar foraminal stenosis (09/06/13) Surgical History History of back surgery History of hysterectomy History of tonsillectomy History of tubal ligation Social History Smoking Status: Never smoker Second Hand Exposure: No; Hx Alcohol Use: No Hx Substance Use: No Preferred Language: Luxembourger Communication Ability: Effective Lna Required: No Beliefs That Will Affect Care: None Current Living Situation: Alone and Spouse Other Information That Helps Us Care for You: No Feels Safe at Home: Yes Safety Concerns: Feels Safe At This Time Assistive Devices: None Review of Systems Review of Systems: As per HPI, all other systems reviewed and negative Physical Exam Physical Exam: GENERAL: Comfortable, obese, pleasant, no respiratory distress SKIN: Pallor, warm HEENT: Pale palpebral conjunctivae, no ptosis, dry buccal mucosa NECK : Supple, short neck, no tenderness CHEST : Decreased breath sounds, no tenderness HEART : RRR, no obvious murmurs ABDOMEN: Some distention, nontender EXTREMITIES : Minimal LE swelling, no LE tenderness, no other conspicuous deformities noted NEUROLOGIC : Coherent, no facial asymmetry, no other gross focality Results & Data Results & Data Vital Signs (Past 12 Hours) Vital Signs Temp Pulse Pulse Resp BP BP Pulse Ox 05/27/22 23:30 85 22 98/70 L 96 05/27/22 23:03 80 18 94/59 L 95 05/27/22 23:02 79 20 05/27/22 22:44 92 H 19 95 05/27/22 22:30 82 23 92/67 L 97 05/27/22 23:35 83 05/27/22 22:07 88 27 H 106/61 97 05/27/22 22:06 78 25 H 05/27/22 20:30 89 24 116/73 96 05/27/22 20:03 97 H 24 97 05/27/22 19:09 102 H 24 93 05/27/22 20:00 37.1 C 101 H 20 97/58 L 97 05/27/22 19:09 102 H 05/27/22 19:02 105 H 20 94 05/27/22 19:02 100 H 16 105/60 94 05/27/22 18:34 37.5 C 112 H 21 108/71 93 O2 Del Method 05/27/22 23:30 05/27/22 23:03 05/27/22 23:02 05/27/22 22:44 05/27/22 22:30 05/27/22 23:35 05/27/22 22:07 05/27/22 22:06 05/27/22 20:30 05/27/22 20:03 05/27/22 19:09 05/27/22 20:00 Room Air 05/27/22 19:09 05/27/22 19:02 Room Air 05/27/22 19:02 Room Air 05/27/22 18:34 Room Air Laboratory Results Laboratory Results WBC 23.15 K/ul (4.8-10.8) H 05/27/22 18:44 RBC 4.96 M/uL (4.20-5.40) 05/27/22 18:44 Hgb 12.0 g/dl (12.0-16.0) 05/27/22 18:44 Hct 36.2 % (37.0-47.0) L 05/27/22 18:44 MCV 73.0 fL (80.0-100.0) L 05/27/22 18:44 MCH 24.2 pg (25.0-34.0) L 05/27/22 18:44 MCHC 33.1 g/dL (32.0-36.0) 05/27/22 18:44 RDW Std Deviation 48.9 fL (36.4-46.3) H 05/27/22 18:44 RDW Coeff of Carole 18.6 % (11.5-14.5) H 05/27/22 18:44 Plt Count 273 K/uL (130-400) 05/27/22 18:44 MPV 10.3 fL (9.4-12.4) 05/27/22 18:44 Immature Gran % (Auto) 0.6 % 05/27/22 18:44 Neut % (Auto) 83.9 % 05/27/22 18:44 Lymph % (Auto) 11.3 % 05/27/22 18:44 [place] % (Auto) 4.0 % 05/27/22 18:44 Eos % (Auto) 0.0 % 05/27/22 18:44 Baso % (Auto) 0.2 % 05/27/22 18:44 Neut # (Auto) 19.39 K/uL (1.40-6.50) H 05/27/22 18:44 Lymph # (Auto) 2.62 K/uL (1.2-3.4) 05/27/22 18:44 [place] # (Auto) 0.93 K/uL (0.11-0.59) H 05/27/22 18:44 Eos # (Auto) 0.01 K/uL (0-0.50) 05/27/22 18:44 Baso # (Auto) 0.05 K/uL (0-0.2) 05/27/22 18:44 Immature Gran # (Auto) 0.15 K/uL (0.01-0.20) 05/27/22 18:44 PT 12.4 Seconds (9.0-12.0) H 05/27/22 19:54 INR 1.2 (0.9-1.1) H 05/27/22 19:54 APTT 29.1 Seconds (21.0-31.0) 05/27/22 19:54 PTT Ratio 1.1 05/27/22 19:54 Sodium 133 mmol/L (136-145) L 05/27/22 18:44 Potassium 4.2 mmol/L (3.5-5.1) 05/27/22 18:44 Chloride 103 mmol/L (98-107) 05/27/22 18:44 Carbon Dioxide 22 mmol/L (21-32) 05/27/22 18:44 Anion Gap 8 (3-11) 05/27/22 18:44 BUN 24 mg/dl (6-23) H 05/27/22 18:44 Creatinine 0.95 mg/dl (0.6-1.2) 05/27/22 18:44 Est Cr Clr Drug Dosing 52.7 ml/min 05/27/22 18:44 Est GFR ( Amer) 69.8 ml/min 05/27/22 18:44 Est GFR (Non-Af Amer) 60.3 ml/min 05/27/22 18:44 BUN/Creatinine Ratio 25.3 (10-20) H 05/27/22 18:44 Glucose 136 mg/dl (70-99(Fasting)) H 05/27/22 18:44 Lactate 1.5 mmol/L (0.4-2.0) 05/27/22 18:58 Calcium 9.1 mg/dl (8.6-10.3) 05/27/22 18:44 Magnesium 1.4 mg/dl (1.7-2.4) L 05/27/22 18:44 Total Bilirubin 0.4 mg/dl (0.2-1.0) 05/27/22 18:44 AST 32 U/L (13-39) 05/27/22 18:44 ALT 39 U/L (7-52) 05/27/22 18:44 Alkaline Phosphatase 93 U/L (34-104) 05/27/22 18:44 Troponin I High Sens 6.6 pg/ml (0-14) 05/27/22 18:44 Total Protein 6.7 gm/dl (6.0-8.3) 05/27/22 18:44 Albumin 3.8 gm/dl (3.4-5.0) 05/27/22 18:44 Globulin 2.9 gm/dl (2.5-4.0) 05/27/22 18:44 Albumin/Globulin Ratio 1.3 (0.9-2) 05/27/22 18:44 Procalcitonin Cancelled 05/27/22 18:44 TSH < 0.010 uIu/ml (0.300-4.500) L 05/27/22 18:44 Free T4 1.32 ng/dl (0.61-1.60) 05/27/22 18:44 Urine Color Yellow 05/27/22 19:52 Urine Appearance Clear (Clear) 05/27/22 19:52 Urine pH 6.0 (4.5-7.5) 05/27/22 19:52 Ur Specific [place] 1.011 (1.000-1.030) 05/27/22 19:52 Urine Protein Negative (Negative) 05/27/22 19:52 Urine Glucose (UA) Negative (Negative) 05/27/22 19:52 Urine Ketones Negative (Negative) 05/27/22 19:52 Urine Blood Negative (Negative) 05/27/22 19:52 Urine Nitrite Negative (Negative) 05/27/22 19:52 Urine Bilirubin Negative (Negative) 05/27/22 19:52 Urine Urobilinogen Negative (Negative) 05/27/22 19:52 Ur Leukocyte Esterase Negative (Negative) 05/27/22 19:52 Lyme Disease IgG Ab Cancelled 05/27/22 18:44 Lyme Disease IgM Ab Cancelled 05/27/22 18:44 SARS-CoV-2 (PCR) NEGATIVE (Negative) 05/27/22 18:44 Influenza Type A (PCR) Negative (Neg) 05/27/22 18:44 Influenza Type B (PCR) Negative (Neg) 05/27/22 18:44 RSV (RT-PCR) Negative (Neg) 05/27/22 18:44 Impressions Chest X-Ray 05/27/22 18:38 SINGLE VIEW CHEST CLINICAL HISTORY: Pneumonia FINDINGS: An AP, portable, upright chest radiograph is compared to study dated 09/09/2013 and correlated with chest CT dated 03/09/2022. The heart is enlarged noting atherosclerotic calcification of the thoracic aorta. The pulmonary vasculature is noncongested. Dependent consolidation is noted at the left lung base. Mild atelectasis is seen on the right. No large pleural effusion or pneumothorax is seen. The skeletal structures are osteopenic. Bony thorax is grossly intact. IMPRESSION: 1. Cardiomegaly without radiographic evidence of congestive failure. 2. There is left basilar consolidation. This could present atelectasis and/or pneumonia. Clinical correlation will be required and radiographic follow-up to resolution is recommended. ACT 112: Negative or not required by law. Electronically signed by: Heber Avila M.D. 05/27/2022 7:11 PM Venous Doppler Study 05/27/22 18:38 Exam(s): US VENOUS RIGHT LOWER EXTREMITY EXAM: US Duplex Right Lower Extremity Veins CLINICAL HISTORY: Right calf pain, h/o DVT. TECHNIQUE: Real-time duplex ultrasound scan of the right lower extremity veins integrating B-mode two-dimensional vascular structure, Doppler spectral analysis, color flow Doppler imaging and compression. COMPARISON: Right lower extremity duplex dated 03/09/2022 FINDINGS: Deep veins: The proximal right femoral vein is partially compressible. The mid to distal femoral vein are nearly occlusive in appearance and noncompressible. No residual thrombus noted in the right common femoral vein or within the proximal profunda femoral vein. The peroneal veins remain occluded. The anterior tibial and posterior tibial veins are now patent. The popliteal vein is partially compressible with internal vascular flow. Superficial veins: No thrombus in the saphenofemoral junction. Soft tissues: No acute findings. No popliteal cyst. IMPRESSION: 1. The proximal right femoral vein is partially compressible. The mid to distal femoral vein are nearly occlusive in appearance and noncompressible. Findings are consistent with persistent deep vein thrombosis of the right femoral vein, questionably minimally improved proximally when compared to the previous examination. 2. No residual thrombus noted in the right common femoral vein or within the proximal profunda femoral vein. 3. The popliteal vein is partially compressible with internal vascular flow. Findings are consistent with partial recanalization of right popliteal vein. Electronically signed by: Thuan Weiner MD 05/27/22 21:[address] 05/27/22 19:08 CT SCAN OF THE BRAIN WITHOUT IV CONTRAST CLINICAL HISTORY: Headache. COMPARISON STUDY: No priors. TECHNIQUE: Unenhanced axial CT scan of the brain is performed from the vertex to the skull base. A dose lowering technique was utilized adhering to the principles of ALARA. CT DOSE: 690.05 mGycm FINDINGS: Brain parenchyma: There is age-related involutional change noting mild to moderate subcortical and periventricular microangiopathic disease. There is no hemorrhage, mass effect, or evidence of acute territorial ischemia by CT criteria. Glaser-white matter differentiation is preserved. No extra-axial fluid collection is seen. Ventricles, sulci, cisterns: Prominent secondary to involutional change. Intracranial vasculature: There is atherosclerotic calcification of the cavernous carotid arteries. Calvarium: Unremarkable. Sinuses and mastoids: The visualized paranasal sinuses are clear. The mastoid air cells are well pneumatized. Orbits: The bony orbits are grossly intact. There is a left ocular lens implant. IMPRESSION: There is no hemorrhage, mass effect, or evidence of acute territorial ischemia by CT criteria. ACT 112: Negative or not required by law. Electronically signed by: Heber Avila M.D. 05/27/2022 7:50 PM Diagnostic Findings EKG as per my interpretation :Rate 115, sinus tachycardia, normal axis, nonspecific T wave abnormalities
[2022-05-28] MEDS ORDERED: APIXABAN 5 MG TABLET PO STA (00:11)
[2022-05-28] MEDS ORDERED: traMADol HCL 50 MG TABLET PO PRN (00:12)
[2022-05-28] MEDS ORDERED: PROMETHAZINE HCL 12.5 MG in SODIUM CHLORIDE 0.9% 50 ML IV PRN (00:12)
[2022-05-28 00:14] LABS: Procalcitonin 0.54 ng/ml (0-0.5)
[2022-05-28 00:20] LABS: Lyme Ab IgG w/WB Rflx Negative (Negative); Lyme Ab IgM w/WB Rflx Negative (Negative)
[2022-05-28] MEDS ORDERED: Flu Vaccine-High Dose (Fluzone-HD) PF 65+ 0.7mL SYR IM ONE (02:15)
[2022-05-28] MEDS ORDERED: PNEUMOCOCCAL Polysaccharide Vaccine 25mcg/0.5mL vial/Syr IM ONE (02:15)
[2022-05-28] MEDS ORDERED: DOXYCYCLINE HYCLATE 100 MG in DEXTROSE 5% 100 ML IV STA (03:19)
[2022-05-28 05:28] LABS: Basophils # (auto) 0.02 K/uL (0-0.2); Basophils % (auto) 0.2 %; Eosinophils # (auto) 0.11 K/uL (0-0.50); Eosinophils % (auto) 0.9 %; Hematocrit (blood only) 31.9 % (37.0-47.0); Hemoglobin 10.3 g/dl (12.0-16.0); Immature Granulocytes # (auto) 0.05 K/uL (0.01-0.20); Immature Granulocytes % (auto) 0.4 %; Lymphocytes # (auto) 3.43 K/uL (1.2-3.4); Lymphocytes % (auto) 28.3 %; Mean Corpuscular Hemoglobin 24.3 pg (25.0-34.0); Mean Corpuscular Hgb Conc 32.3 g/dL (32.0-36.0); Mean Corpuscular Volume 75.4 fL (80.0-100.0); Mean Platelet Volume 10.1 fL (9.4-12.4); Monocytes # (auto) 0.75 K/uL (0.11-0.59); Monocytes % (auto) 6.2 %; Neutrophils # (auto) 7.77 K/uL (1.40-6.50); Platelet Count 230 K/uL (130-400); RDW Standard Deviation 51.6 fL (36.4-46.3); Red Blood Count 4.23 M/uL (4.20-5.40); White Blood Count 12.13 K/ul (4.8-10.8)
[2022-05-28 05:35] LABS: BUN Creatinine Ratio 20.2 (10-20); Calcium 8.3 mg/dl (8.6-10.3); Creatinine Clr Calc Pharmacy 59.2 ml/min; Est GFR (Non-African American) 69.9 ml/min; Magnesium 2.3 mg/dl (1.7-2.4); Potassium 3.9 mmol/L (3.5-5.1)
[2022-05-28] MEDS: PANTOprazole 40 MG TAB PO SCH (06:21)
[2022-05-28] MEDS: ACETAMINOPHEN 325 MG TAB PO PRN ×2 (07:16→18:30)
[2022-05-28 08:02] LABS: Estimated Average Glucose 134 mg/dl; Hemoglobin A1C 6.3 % (4.5-5.6)
[2022-05-28] MEDS: APIXABAN 5 MG TABLET PO SCH ×2 (08:49→21:18)
[2022-05-28] MEDS: FERROUS SULFATE 325 MG TAB PO SCH (08:50)
[2022-05-28] MEDS: OXYBUTYNIN CHLORIDE XL 5 MG TABCR PO SCH (08:50)
[2022-05-28] MEDS: DULoxetine HCL 30 MG CAP PO SCH (08:50)
--- NOTE | 2022-05-28 13:17 | Electrocardiogram Report ---
Test Reason : Blood Pressure : / mmHG Vent. Rate : 115 BPM Atrial Rate : 115 BPM P-R Int : 124 ms QRS Dur : 076 ms QT Int : 316 ms P-R-T Axes : 070 017 059 degrees QTc Int : 437 ms Sinus tachycardia Nonspecific T wave abnormality Abnormal ECG When compared with ECG of 10-MAR-2022 04:42, Nonspecific T wave abnormality now evident in Lateral leads Confirmed by Toni Ochoa ([id number]) on 05/28/2022 1:17:16 PM Referred By: REFERRED SELF Confirmed By:Toni Ochoa
--- NOTE | 2022-05-28 15:03 | Communication Note ---
Date of Service: May 28, 2022 Patient seen and examined at bedside in the emergency department. She is lying on the bed comfortably; reports fatigue and tiredness. Afebrile overnight; saturating well on room air. Physical examination Alert oriented x3 CVSS1-S2 heard, no murmur Chestdecreased breath sound on left lower lung field Abdomensoft tender Neurogrossly intact Assessment/plan Left lower lobe pneumonia: Chest x-ray shows opacity in left lower lung field. Pro-Fahad elevated. Continue on doxycycline and ceftriaxone. Supplemental oxygen as needed to maintain saturation above 90% History of DVT/PEcontinue on Eliquis
[2022-05-28] MEDS ORDERED: cefTRIAXone SODIUM 2,000 MG in DEXTROSE 5% 50 ML IV SCH (20:00)
[2022-05-28] MEDS ORDERED: LORazepam 1 MG TAB PO SCH (21:00)
[2022-05-28] MEDS ORDERED: SIMVASTATIN 40 MG TAB PO SCH (21:00)
[2022-05-28] MEDS: DOXYCYCLINE HYCLATE 100 MG CAP PO SCH (21:18)
[2022-05-29] MEDS: PANTOprazole 40 MG TAB PO SCH (06:05)
[2022-05-29] MEDS: DOXYCYCLINE HYCLATE 100 MG CAP PO SCH (08:32)
[2022-05-29] MEDS: APIXABAN 5 MG TABLET PO SCH (08:32)
[2022-05-29] MEDS: DULoxetine HCL 30 MG CAP PO SCH (08:32)
[2022-05-29] MEDS: OXYBUTYNIN CHLORIDE XL 5 MG TABCR PO SCH (08:33)
[2022-05-29] MEDS: FERROUS SULFATE 325 MG TAB PO SCH (08:33)
[2022-05-29 09:33] LABS: Basophils # (auto) 0.04 K/uL (0-0.2); Basophils % (auto) 0.6 %; Eosinophils # (auto) 0.19 K/uL (0-0.50); Hematocrit (blood only) 35.3 % (37.0-47.0); Hemoglobin 11.2 g/dl (12.0-16.0); Immature Granulocytes # (auto) 0.03 K/uL (0.01-0.20); Immature Granulocytes % (auto) 0.5 %; Lymphocytes # (auto) 2.52 K/uL (1.2-3.4); Lymphocytes % (auto) 39.2 %; Mean Corpuscular Hemoglobin 23.9 pg (25.0-34.0); Mean Corpuscular Hgb Conc 31.7 g/dL (32.0-36.0); Mean Corpuscular Volume 75.4 fL (80.0-100.0); Mean Platelet Volume 10.3 fL (9.4-12.4); Monocytes % (auto) 6.2 %; Neutrophils # (auto) 3.25 K/uL (1.40-6.50); Neutrophils % (auto) 50.5 %; Platelet Count 244 K/uL (130-400); RDW Coefficient of Variation 19.3 % (11.5-14.5); RDW Standard Deviation 52.2 fL (36.4-46.3); Red Blood Count 4.68 M/uL (4.20-5.40); White Blood Count 6.43 K/ul (4.8-10.8)
[2022-05-29 12:54] LABS: Albumin Level 3.4 gm/dl (3.4-5.0); Bilirubin,Total 0.3 mg/dl (0.2-1.0); Calcium 9.1 mg/dl (8.6-10.3); Potassium 4.1 mmol/L (3.5-5.1)
--- NOTE | 2022-05-29 12:56 | Discharge Summary ---
Date of Service May 29, 2022 Admission HPI Per Admitting Provider History obtained from patient and records. Medical history significant for PE DVT on Eliquis, hyperlipidemia, chronic anemia (baseline hemoglobin of 11), anxiety/mood disorder, past tobacco abuse. Last confinement March 2022 for acute PE DVT, submassive PE with RV strain. Patient transitioned to [facility] on discharge. Patient not feeling well the last 2 days. Generalized weakness, fatigue, mild headache symptoms. Denies cough, abdominal pain, dysuria, diarrhea symptoms. Low-grade fever at home. Not sure about sick contacts. No neck pain. Patient completed COVID-19 vaccination. IV cefepime administered at the ER for possible sepsis. 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 Medical History as above Surgical History : Cataract surgery, BTL, partial hysterectomy, right oophorectomy, tonsillectomy, vitrectomy, vaginal sling procedure Family History : Colon cancer, DM Personal/Social history : Past tobacco abuse, occasional EtOH intake Admission Exam Per Admitting Provider GENERAL: Comfortable, obese, pleasant, no respiratory distress SKIN: Pallor, warm HEENT: Pale palpebral conjunctivae, no ptosis, dry buccal mucosa NECK : Supple, short neck, no tenderness CHEST : Decreased breath sounds, no tenderness HEART : RRR, no obvious murmurs ABDOMEN: Some distention, nontender EXTREMITIES : Minimal LE swelling, no LE tenderness, no other conspicuous deformities noted NEUROLOGIC : Coherent, no facial asymmetry, no other gross focality Principal Diagnosis Sepsis POA Left lower lobe pneumonia Subacute DVT of right femoral vein Discharge Exam Constitutional: WD/WN, vitals as above, NAD, sitting up in bed, pleasant, conversing easily Respiratory: Slightly decreased breath sound on left lower lung field. Cardiovascular: RRR, no murmur, no edema Vessels: no JVD or carotid bruit Chest: normal inspection of chest Abdomen: normal bowel sounds, soft, nontender, no hepatosplenomegaly Musculoskeletal: Right leg slightly bigger than left. No pitting edema. Skin: no rashes, warm and dry normal turgor Neurologic: PERRL, EOMI, accommodation nl, no face palsy, no dysarthria CN's II- XI intact bilaterally and moves all extremities Psychiatric: A+Ox3, euthymic affect Lymphatic: no cervical or axillary lymphadenopathy : deferred Discharge Data Allergies Allergy/AdvReac Type Severity Reaction Status Date / Time Pertussis Vaccines Allergy Unknown RASH/SWELLING Verified 05/27/22 20:39 AT INJECTION SITE Consultations 05/27/22 22:20 ED Decision to Admit Stat Ordered Studies 05/27/22 18:38 US venous doppler LE RT Stat 05/27/22 19:08 CT head/brain wo con Stat Hospital Course (1) Pneumonia: (2) Sepsis: Plan Pneumonia Subacute DVT of right femoral vein Patient is a 71-year-old female with past medical history of PE/DVT on Eliquis, hyperlipidemia presented to the hospital with generalized weakness fatigue and low-grade fever. On presentation to the ED, she was afebrile, normotensive and saturating well on room air. On lab work, she was found to have significant leukocytosis with WBC of 23 and elevated pro calcitonin. Chest x-ray showed left lower lobe consolidation consistent with pneumonia. She was treated with IV antibiotic and admitted to telemetry floor. Over the course of the hospitali zation, her leukocytosis improved; patient did not have any fever and she continued to saturate well on room air. Patient also underwent venous duplex showed finding consistent with persistent deep vein thrombosis of right femoral vein. Patient reported compliance with Eliquis. Patient was discharged home on oral antibiotic to complete course of for pneumonia. All her home medication was resumed. Patient to follow-up with her primary care doctor. Total Time Total Time Spent Total Time Spent (In Minutes): 40 Total Time Includes: Examination of the Patient, Discharge Planning, Medication Reconciliation, Communication With Other Providers and Other Discharge Plan Discharge Items Patient Disposition: Home - Self-Care Reason For Visit: HYPOMAG Discharge Diagnosis: Left lower lobe pneumonia Activity: Resume your previous activity Non-emergency contact: Primary Care Provider Call non-emergency contact if: you have any medication questions and your symptoms worsen Follow-up/Referrals: Nereyda Palacio DO [Primary Care Provider] - (Date & Time 06/05/2022 10:50 AM Provider Nereyda Palacio DO Department [facility] ) Diet: Regular Addtl Attending Provider Instructions: You were admitted to the hospital with left lung pneumonia. You are treated with antibiotics during the hospitalization. You are prescribed cefdinir 300 mg twice daily and doxycycline 100 mg twice daily for 5 more days to complete the course of antibiotics. A follow-up with your primary care doctor will be set up for next week. During your hospitalization, thyroid function test was done; TSH was found to be less than 0.010 with free T4 of 1.32. It can be abnormal during sickness. Please have thyroid function done with your primary care doctor in 2 to 3 weeks. Pending Studies at Discharge: No Stand-Alone Forms: My [facility], Smoking Cessation Medications and DC Order Prescriptions: New doxycycline hyclate 100 mg Capsule 100 mg PO BID 5 Days Qty: 10 0RF cefdinir 300 mg capsule 300 mg PO BID 5 Days Qty: 10 0RF Continued simvastatin 40 mg tablet 40 mg PO HS oxybutynin chloride 5 mg tablet extended release 24hr 5 mg PO QAM omeprazole 20 mg capsule,delayed release(DR/EC) 20 mg PO DAILYBB lorazepam 1 mg tablet 1 mg PO HS duloxetine [Cymbalta] 30 mg capsule,delayed release(DR/EC) 30 mg PO QAM Eliquis 5 mg tablet 5 mg PO BID Qty: 74 0RF ferrous sulfate 325 mg (65 mg iron) Tablet,Delayed Release (Dr/Ec) 325 mg PO QAM Qty: 30 1RF Discharge Orders: Discharge Order (Routine); Ordered 05/29/22 Ordered By: Jonny Tejeda/Other Patient Handouts: Prediabetes, 5 Steps for Eating Healthier Admission Data Admit Date/Time: 05/28/22 00:11 Attending Provider: Jonny Benedict Admit Provider: Curtis Zhang Primary Care Provider: Nereyda Palacio Other Providers: Curtis Zhang Other Interventions: Discharge Summary Assessment (RN) Last Done: 05/29/22 10:23
[2022-05-29 13:00] LABS: Albumin Globulin Ratio 1.1 (0.9-2); Creatinine Clr Calc Pharmacy 62.1 ml/min; Est GFR (African American) 84.7 ml/min; Est GFR (Non-African American) 73.1 ml/min; Total Protein 6.4 gm/dl (6.0-8.3)
--- NOTE | 2022-05-31 12:11 | Communication Note ---
Date of Service: May 31, 2022 Code 44 attestation; 71-year-old with left lower lobe pneumonia was admitted on 05/28/2022 and was appropriately taken care of by the attending. His notes, imaging studies and labs reviewed. He was discharged home in a stable medical condition. By CMS guidelines, a determination that the admission or continued stay is not medically necessary has been made by a member of the UR committee and a physician for this hospital stay, therefore a Code 44 will be completed and the Inpatient admission will be changed to outpatient. Dr Lucia Carranza Member UR Committee
== END 2022-05-29 11:35 | disposition home or self-care (01) | DRG 871 ==
LOC: ED 18:26 → SUATTDRO 05-28 00:11 → INTOOBSV 05-28 00:11 → EDINP 05-28 00:59 → 2N 05-28 02:02